=== PATIENT | male | born 1940 | race Caucasian/White ===

== ENCOUNTER 2020-12-01 09:49 | Inpatient (IN) | payer MEDICARE, OTHER ==
[~2020-12-01] VITALS: Ht 167.6 cm; Wt 45.5 kg
--- NOTE | 2020-12-01 10:07 | NUR ---
CALLED [facility], , FOR VACCINE INFO. MEDICAL RECORDS IN A MEETING, ASKING TO CALLBACK IN 20 MIN
--- NOTE | 2020-12-01 10:24 | NUR ---
ANIYA OLEARY FRM SNIF FOR ABNORMAL LABS, H&H 8.5/ .5. PT AAOX3, RR EVEN & UNLABORED. DENIES CP, SOB, DIZZINESS, N/V/D AT THIS TIME. PT SEEN & EVAL'D BY DR. VALDIVIA. PLACED ON RFID TECHNICIAN, AFIB. WILL CONT TO MONITOR.
[2020-12-01 10:37] LABS: BASOPHILS # (AUTO) 0.1 K/uL (0.0-0.2); BASOPHILS % (AUTO) 1.3 % (0.0-2.0); EOSINOPHILS % (AUTO) 4.6 % (0.0-6.0); HEMATOCRIT 28 % (39-51); HEMOGLOBIN 9.2 g/dL (13.5-17.5); LYMPHOCYTES # (AUTO) 1.1 K/uL (0.8-4.8); LYMPHOCYTES % (AUTO) 16.4 % (20.0-44.0); MEAN CORPUSCULAR HGB CONC 33 g/dl (31.0-36.0); MEAN CORPUSCULAR VOLUME 84 fL (80-96); MONOCYTES # (AUTO) 1.1 K/uL (0.1-1.30); MONOCYTES % (AUTO) 16.3 % (2.0-12.0); NEUTROPHILS # (AUTO) 4.1 K/uL (1.8-8.9); NEUTROPHILS % (AUTO) 61.4 % (43.0-81.0); PLATELET COUNT (AUTO) 412 K/uL (150-450); RED BLOOD CELL COUNT(AUTO) 3.32 MIL/uL (4.5-6.0); WHITE BLOOD COUNT (AUTO) 6.7 K/uL (4.3-11.0)
[2020-12-01 10:46] LABS: CALCIUM, SERUM 9.9 mg/dL (8.5-10.1); CREATININE 0.8 mg/dL (0.6-1.3); POTASSIUM 4.5 mmol/L (3.5-5.1)
[2020-12-01 10:52] LABS: ALBUMIN 2.6 g/dL (3.4-5.0); BILIRUBIN,DIRECT 0.2 mg/dL (0.0-0.2); BILIRUBIN,TOTAL 0.9 mg/dL (0.2-1.0); TOTAL PROTEIN, SERUM 6.5 g/dL (6.4-8.2)
[2020-12-01] MEDS ORDERED: LEVO175T7 PO (11:01)
[2020-12-01] MEDS ORDERED: LISI10TA29 PO (11:01)
[2020-12-01] MEDS ORDERED: CHOL100062 PO (11:01)
[2020-12-01] MEDS ORDERED: ATOR40TA PO (11:01)
[2020-12-01] MEDS ORDERED: CRAN3875 PO (11:01)
[2020-12-01] MEDS ORDERED: LOPE-195 PO (11:01)
[2020-12-01] MEDS ORDERED: METO25TA20 PO (11:01)
[2020-12-01] MEDS ORDERED: APIX5TAB PO (11:01)
[2020-12-01] MEDS ORDERED: MULT-447 PO (11:01)
[2020-12-01] MEDS ORDERED: DOCU-141 PO (11:01)
[2020-12-01] MEDS ORDERED: FURO-145 PO (11:01)
[2020-12-01] MEDS ORDERED: ISOS30TA86 PO (11:01)
[2020-12-01] MEDS ORDERED: NA P133E RC (11:07)
[2020-12-01] MEDS ORDERED: ACET-868 PO (11:07)
[2020-12-01] MEDS ORDERED: ACET-2605 PO (11:07)
[2020-12-01] MEDS ORDERED: BISA10SU11 RC (11:07)
--- NOTE | 2020-12-01 11:17 | NUR ---
SUBMITTED MOVE SHEET
--- NOTE | 2020-12-01 11:18 | NUR ---
CALLED PCP, DR. MURGUIA AND RAY STONE TALKED
--- NOTE | 2020-12-01 11:19 | NUR ---
PAGED EPIC TRAFFIC DIRECTOR
--- NOTE | 2020-12-01 11:19 | NUR ---
SUBMITTED MOVE SHEET
[2020-12-01] MEDS ORDERED: LOPERAMIDE HCL (2 MG CAP) 2 MG CAPSULE PO PRN (11:30)
[2020-12-01] MEDS ORDERED: BISACODYL SUPP (10 MG) 10 MG/SUPP.RECT SUPP.RECT RC PRN (11:30)
[2020-12-01] MEDS ORDERED: NA PHOS,M-B/NA PHOS,DI-BA 1 EA ENEMA RC PRN (11:30)
[2020-12-01] MEDS ORDERED: ACETAMINOPHEN 325 MG TABLET PO PRN (11:30)
[2020-12-01] MEDS ORDERED: MISCELLANEOUS MED 1 EA EA PO PRN (11:30)
--- NOTE | 2020-12-01 13:09 | NUR ---
PT STABLE, RR EVEN & UNLABORED. DENIES CP, SOB, DIZZINESS, N/V AT THIS TIME. WILL CONT TO MONITOR.
--- NOTE | 2020-12-01 13:20 | NUR ---
CALLED NURSING MYRIAM BELCHER. NO BEDS YET.
--- NOTE | 2020-12-01 13:22 | NUR ---
room [id number]
[2020-12-01 13:31] LABS: EOSINOPHILS % (MANUAL) 3 % (0-4); LYMPHOCYTES % (MANUAL) 15 % (16-48); MONOCYTES % (MANUAL) 12 % (0-11.0); NEUTROPHILS % (MANUAL) 70 (42-76)
--- NOTE | 2020-12-01 13:37 | NUR ---
report given to Clovis GELLER for rob.
[2020-12-01] MEDS: PANTOPRAZOLE 40 MG VIAL IV SCH ×2 (16:22→20:10)
[2020-12-01] MEDS: METOPROLOL TARTRATE 25 MG TABLET PO SCH (16:23)
--- NOTE | 2020-12-01 19:45 | NUR ---
PT RECEIVED SLEEPING IN BED, A/O X1, RESPONDS TO NAME. PT. ON TELEMETRY, SR. CURRENTLY ON 2L VIA NC WITH SATURATIONS ABOVE 98%, NO S/S OF RESP. DISTRESS NOTED. PER TELECOMMUNICATIONS NETWORK PLANNER MD ORDERS, NPO DIAGNOSIS PENDING GI CONSULT. (R) AC 18G SALINE LOCK, PATENT AND INTACT. SAFETY MEASURES IN PLACE: BED LOWEST POSITION, CALL LIGHT WITHIN REACH, SIDE RAILS UP X3, BED LOCKED, AND BED ALARM ON. NO ACUTE DISTRESS NOTED AT THIS TIME.
[2020-12-01 20:41] LABS: HEMOGLOBIN 9.5 g/dL (13.5-17.5)
[2020-12-01 22:00] VITALS: BP 121/61
[2020-12-01] MEDS: ATORVASTATIN 40 MG TABLET PO SCH (22:00)
[2020-12-02] VITALS: BP 104/52
[2020-12-02 04:00] VITALS: BP 113/57
[2020-12-02 04:28] LABS: HEMOGLOBIN 10.6 g/dL (13.5-17.5)
--- NOTE | 2020-12-02 06:39 | NUR ---
RN CLOSING NOTE PT CURRENTLY SLEEPING IN BED, A/O X1, RESPONDS TO NAME. PT. ON TELEMETRY, SR. CURRENTLY ON 2L VIA NC WITH SATURATIONS ABOVE 98%, NO S/S OF RESP. DISTRESS NOTED. PER PULLMAN CAR REPAIRER MD ORDERS, NPO DIAGNOSIS PENDING GI CONSULT. (R) AC 18G SALINE LOCK, PATENT AND INTACT. PT. DENIES ANY PAIN. KEPT CLEAN AND DRY THROUGHOUT SHIFT WITH PROPER SKIN PROTECTIVE MEASURES. MD ORDERS CARRIED OUT AND TOLERATED WELL. SAFETY MEASURES IN PLACE: BED LOWEST POSITION, CALL LIGHT WITHIN REACH, SIDE RAILS UP X3, BED LOCKED, AND BED ALARM ON. NO ACUTE DISTRESS NOTED AT THIS TIME. WILL ENDORSE CONTINUITY OF CARE TO MORNING SHIFT RN.
--- NOTE | 2020-12-02 07:20 | NUR ---
RN NOTE PATIENT OBSERVED IN BED, AWAKE RESPONSIVE TO TOUCH, ALERT AND ORIENTED X1, BREATHING EVEN AND UNLABORED, ON TELE MONITOR SR OF 80, PATIENT ON NPO FOR GI CONSULT WILL CLARIFY WITH DR. HOLLINGSWORTH, RIGHT AC IV PATENT FLUSHING WELL. WILL CONTINUE TO MONITOR, BED WHEEL LOCK, CALL LIGHT WITHIN REACH, SAFETY MEASURES OBSERVED, WILL CONTINUE TO MONITOR. Addendum: 12/02/20 at 1059 by MARGARITO SPRAGUE RN RN NOTE PATIENT OBSERVED IN BED, AWAKE RESPONSIVE TO TOUCH, ALERT AND ORIENTED X1, PATIENT ON O2 VIA NC @ 2LPM O2 SAT OF 97 %, BREATHING EVEN AND UNLABORED, ON TELE MONITOR SR OF 80, PATIENT ON NPO FOR GI CONSULT WILL CLARIFY WITH DR. HOLLINGSWORTH, RIGHT AC IV PATENT FLUSHING WELL. WILL CONTINUE TO MONITOR, BED WHEEL LOCK, CALL LIGHT WITHIN REACH, SAFETY MEASURES OBSERVED, WILL CONTINUE TO MONITOR. Addendum: 12/03/20 at 0745 by MARGARITO SPRAGUE RN RN NOTE PATIENT OBSERVED IN BED, AWAKE RESPONSIVE TO TOUCH, ALERT AND ORIENTED X1, BREATHING EVEN AND UNLABORED, ON TELE MONITOR CONTROLLED A-FIB OF 80, PATIENT ON NPO FOR GI CONSULT WILL CLARIFY WITH DR. HOLLINGSWORTH, RIGHT AC IV PATENT FLUSHING WELL. WILL CONTINUE TO MONITOR, BED WHEEL LOCK, CALL LIGHT WITHIN REACH, SAFETY MEASURES OBSERVED, WILL CONTINUE TO MONITOR.
[2020-12-02] MEDS: LEVOTHYROXINE SODIUM 175 MCG TABLET PO SCH (07:30)
[2020-12-02 08:00] VITALS: BP 98/55
[2020-12-02] MEDS: PANTOPRAZOLE 40 MG VIAL IV SCH ×2 (08:16→16:45)
[2020-12-02] MEDS: DOCUSATE SODIUM 100 MG CAPSULE PO SCH (09:00)
[2020-12-02] MEDS: METOPROLOL TARTRATE 25 MG TABLET PO SCH ×2 (09:00→16:43)
[2020-12-02] MEDS: FUROSEMIDE 20 MG TABLET PO SCH (09:00)
[2020-12-02] MEDS: CHOLECALCIFEROL 1,000 UNIT TABLET (VIT D3) PO SCH (09:00)
[2020-12-02] MEDS ORDERED: Medication Not On Formulary EA (Cran/Vitc/Mannose/Inulin/Brom (Uti-Stat Liquid) 3,875 MG PO SCH (09:00)
[2020-12-02] MEDS: ISOSORBIDE MONONITRATE (30MG) 30 MG TAB.SR.24H PO SCH (09:00)
[2020-12-02] MEDS: MULTIVIT W/MINERALS 1 TAB TABLET PO SCH (09:00)
[2020-12-02] MEDS: LISINOPRIL (10MG) 10 MG TABLET PO SCH (09:00)
--- NOTE | 2020-12-02 09:50 | NUR ---
RN NOTE HOLD PO MEDICATION ORDERED. PATIENT FOR SWALLOW EVALUATION
--- NOTE | 2020-12-02 09:54 | NUR ---
RN NOTE PATIENT SEEN BY DR. PONCE, MADE AWARE OF PATIENT CURRENT CONDITION, WILL CONTINUE TO MONITOR PATIENT.
--- NOTE | 2020-12-02 11:33 | NUR ---
RN NOTE PATIENT ON NPO PER DR. PONCE SCHEDULED FOR EGD DR. PONCE TALKED WITH DR. BENDER, CONSENT FOR EGD DONE, ORDERS NOTED AND CARRIED OUT ORDERED.
--- NOTE | 2020-12-02 11:44 | NUR ---
RN NOTE RP NOTIFIED FOR CONSENT FOR EGD AND BLOOD TRANSFUSION, REZA AGUAYO WILL SIGN THE CONSENT PERSONALLY ANDSHES ON HER WAY AROUND 1235.
[2020-12-02 12:00] VITALS: BP 32/51
[2020-12-02 12:06] LABS: HEMOGLOBIN 10.4 g/dL (13.5-17.5)
--- NOTE | 2020-12-02 13:41 | NUR ---
RN NOTE EGD, BLOOD TRANSFUSION CONSENT OBTAINED FROM RESPONSIBLE CONSTITUTION PARTY.
[2020-12-02] MEDS ORDERED: ANESTHESIA TRAY IN PYXIS 1 EA TRAY MC ONE (15:01)
[2020-12-02 16:00] VITALS: BP 95/57
--- NOTE | 2020-12-02 18:06 | NUR ---
RN NOTE PATIENT OBSERVED IN BED, AWAKE RESPONSIVE TO TOUCH, ALERT AND ORIENTED X1, PATIENT ON O2 VIA NC @ 2LPM O2 SAT OF 978 %, BREATHING EVEN AND UNLABORED, ON TELE MONITOR SR OF 74, PATIENT ON NPO FOR EGD WITH DR. DELUCA ORDERED BY , RIGHT AC IV PATENT FLUSHING WELL. WILL CONTINUE TO MONITOR, BED WHEEL LOCK, CALL LIGHT WITHIN REACH, SAFETY MEASURES OBSERVED, WILL CONTINUE TO MONITOR. WILL ENDORSE TO NEXT SHIFT Addendum: 12/03/20 at 0744 by MARGARITO SPRAGUE RN N NOTE PATIENT OBSERVED IN BED, AWAKE RESPONSIVE TO TOUCH, ALERT AND ORIENTED X1, PATIENT ON O2 VIA NC @ 2LPM O2 SAT OF 98 %, BREATHING EVEN AND UNLABORED, ON TELE MONITOR CONTROLED AFIB OF 74, PATIENT ON NPO FOR EGD WITH DR. DELUCA ORDERED BY , RIGHT AC IV PATENT FLUSHING WELL. WILL CONTINUE TO MONITOR, BED WHEEL LOCK, CALL LIGHT WITHIN REACH, SAFETY MEASURES OBSERVED, WILL CONTINUE TO MONITOR. WILL ENDORSE TO NEXT SHIFT
--- NOTE | 2020-12-02 18:10 | NUR ---
RN NOTE PATIENT TRANSPORTED TO GI FOR EGD,PATIENT WITH O2 VIA NC @ 2LPM O2 SAT OF 98%, NOT IN DISTRESS BREATHING EVENA ND UNLABORED, VTS WNL.
--- NOTE | 2020-12-02 19:00 | NUR ---
RN NOTE REPORT RECEIVED FROM MARGARITO GELLER. PATIENT AT EGD PROCEDURE.
--- NOTE | 2020-12-02 19:30 | NUR ---
RN NOTE PATIENT BACK TO UNIT FROM GI/OR S/P EGD VIA MEDICAL BED ACCOMPANIED BY CARLYN GELLER AND ANOTHER OR PERSONNEL, TRANSFERRED BACK TO BED VIA 2 PERSON ASSIST, AO X 1-2, NON VERBAL BUT COOPERATIVE, IN NO S/SX OF ACUTE DISTRESS AT THIS TIME. BREATHING EVEN AND UNLABORED, SATURATION AT 100% ON 2 LPM VIA NC, SR ON THE MONITOR, HR IS 89. NOTED IV SITE AT R AC 18GG, APPEARS LEAKING, BUT PATENT WHEN FLUSHED, NO S/S OF INFECTION OR INFILTRATION. SAFETY MEASURES IMPLEMENTED. PATIENT BED ALARM IS ON. HEAD OF BED ELEVATED. BED IS LOCKED, IN LOWEST POSITION AND SIDE RAILS UP. CALL LIGHT WITHIN REACH OF THE PATIENT. WILL CONTINUE TO MONITOR AND REASSESS FOR ANY CHANGES.
[2020-12-02 20:00] VITALS: BP 101/97
[2020-12-02 20:29] LABS: HEMOGLOBIN 9.5 g/dL (13.5-17.5)
[2020-12-02] MEDS: ATORVASTATIN 40 MG TABLET PO SCH (21:23)
[2020-12-03] VITALS (7 sets, daily range): BP systolic 91–111; BP diastolic 46–61
[2020-12-03 04:14] LABS: HEMOGLOBIN 9.9 g/dL (13.5-17.5)
--- NOTE | 2020-12-03 07:20 | NUR ---
RN NOTE PATIENT OBSERVED IN BED, AWAKE RESPONSIVE TO TOUCH, ALERT AND ORIENTED X1, PATIENT ON O2 VIA NC @ 2LPM O2 SAT OF 97 %, BREATHING EVEN AND UNLABORED, ON TELE MONITOR CONTROLLED A-FIB OF 74, NO COMPLAINS OF CHEST PAIN NOTED, RIGHT AC IV PATENT FLUSHING WELL. WILL CONTINUE TO MONITOR, BED WHEEL LOCK, CALL LIGHT WITHIN REACH, SAFETY MEASURES OBSERVED, WILL CONTINUE TO MONITOR.
[2020-12-03] MEDS: MULTIVIT W/MINERALS 1 TAB TABLET PO SCH (08:41)
[2020-12-03] MEDS: LEVOTHYROXINE SODIUM 175 MCG TABLET PO SCH (08:41)
[2020-12-03] MEDS: DOCUSATE SODIUM 100 MG CAPSULE PO SCH (08:41)
[2020-12-03] MEDS: CHOLECALCIFEROL 1,000 UNIT TABLET (VIT D3) PO SCH (08:41)
[2020-12-03] MEDS: PANTOPRAZOLE 40 MG VIAL IV SCH ×2 (08:41→17:21)
[2020-12-03] MEDS: FUROSEMIDE 20 MG TABLET PO SCH (08:41)
[2020-12-03] MEDS: METOPROLOL TARTRATE 25 MG TABLET PO SCH ×2 (09:00→17:21)
[2020-12-03] MEDS: ISOSORBIDE MONONITRATE (30MG) 30 MG TAB.SR.24H PO SCH (09:00)
[2020-12-03] MEDS: LISINOPRIL (10MG) 10 MG TABLET PO SCH (09:00)
[2020-12-03] MEDS: ENSURE ENLIVE 237 ML LIQUID (VANILLA) PO SCH ×2 (10:12→17:26)
--- NOTE | 2020-12-03 10:46 | NUR ---
RN NOTE SEEN BY DR. HOLLINGSWORTH, PATIENT TO BE DISCHARGE BACK TO SNF TODAY.
--- NOTE | 2020-12-03 19:11 | NUR ---
RN NOTE PATIENT OBSERVED IN BED, AWAKE RESPONSIVE TO TOUCH, ALERT AND ORIENTED X1, PATIENT ON O2 VIA NC @ 2LPM O2 SAT OF 97 %, BREATHING EVEN AND UNLABORED, ON TELE MONITOR CONTROLLED A-FIB OF 74, NO COMPLAINS OF CHEST PAIN NOTED, RIGHT AC IV PATENT FLUSHING WELL. PATIENT FOR DISCHARGE ON AM, LABS ON AM, WILL CONTINUE TO MONITOR, BED WHEEL LOCK, CALL LIGHT WITHIN REACH, SAFETY MEASURES OBSERVED, WILL CONTINUE TO MONITOR.
[2020-12-03 20:29] LABS: HEMOGLOBIN 9.6 g/dL (13.5-17.5)
[2020-12-03] MEDS: ATORVASTATIN 40 MG TABLET PO SCH (22:19)
[2020-12-04] VITALS: BP 90/45
[2020-12-04 00:18] VITALS: BP 90/45
[2020-12-04 04:00] VITALS: BP 94/43
[2020-12-04 07:06] LABS: BASOPHILS # (AUTO) 0.1 K/uL (0.0-0.2); BASOPHILS % (AUTO) 1.4 % (0.0-2.0); EOSINOPHILS % (AUTO) 3.8 % (0.0-6.0); HEMATOCRIT 29 % (39-51); HEMOGLOBIN 9.6 g/dL (13.5-17.5); LYMPHOCYTES # (AUTO) 0.9 K/uL (0.8-4.8); LYMPHOCYTES % (AUTO) 14.3 % (20.0-44.0); MEAN CORPUSCULAR HGB CONC 33 g/dl (31.0-36.0); MEAN CORPUSCULAR VOLUME 85 fL (80-96); MONOCYTES # (AUTO) 1.3 K/uL (0.1-1.30); MONOCYTES % (AUTO) 21.5 % (2.0-12.0); NEUTROPHILS # (AUTO) 3.5 K/uL (1.8-8.9); PLATELET COUNT (AUTO) 347 K/uL (150-450)
[2020-12-04 07:11] LABS: CALCIUM, SERUM 9.4 mg/dL (8.5-10.1); CREATININE 0.8 mg/dL (0.6-1.3); POTASSIUM 4.1 mmol/L (3.5-5.1)
--- NOTE | 2020-12-04 07:30 | NUR ---
RN NOTE PATIENT FOR DISCHARGE GAVE REPRT TO AGUSTIN THOMPSON RN UPDATED REGARDING PATIENT CURRENT CONDITION AND DISCHARGE ORDERS, PATIENT OBSERVED IN BED, AWAKE RESPONSIVE TO TOUCH, ALERT AND ORIENTED X1, PATIENT ON O2 VIA NC @ 2LPM O2 SAT OF 99 %, BREATHING EVEN AND UNLABORED, ON TELE MONITOR CONTROLLED A-FIB OF 74, NO COMPLAINS OF CHEST PAIN NOTED, RIGHT AC IV PATENT FLUSHING WELL. WILL CONTINUE TO MONITOR, BED WHEEL LOCK, CALL LIGHT WITHIN REACH, SAFETY MEASURES OBSERVED, WILL CONTINUE TO MONITOR.
[2020-12-04] MEDS: ENSURE ENLIVE 237 ML LIQUID (VANILLA) PO SCH (08:12)
--- NOTE | 2020-12-04 08:25 | NUR ---
RN NOTE PATIENT PADDER CUSHION BY TRANSPORT FOR DISCHARGE TO BE ADMITTED TO [facility], PATIENT VTS WNL GAVE REPORT REGARDING PATIENT CURRENT STATUS.
[2020-12-04 10:07] LABS: BAND % (MANUAL) 1 % (0.0-5.0); EOSINOPHILS % (MANUAL) 5 % (0-4); LYMPHOCYTES % (MANUAL) 15 % (16-48); MONOCYTES % (MANUAL) 22 % (0-11.0); NEUTROPHILS % (MANUAL) 57 (42-76)
== END 2020-12-04 08:45 | DRG 811 ==
LOC: ER 09:59 → MEDSG1 13:54 → TELE1 21:02
PROVIDERS: ADMIT Internal Medicine; ATTEND Internal Medicine
PROC: 0DB68ZX Excision of Stomach, Via Natural or Artificial Opening Endoscopic, Diagnostic (ICD-10-PCS; principal; 2020-12-02)
DX: D64.9 Anemia, unspecified (principal); E43 Unspecified severe protein-calorie malnutrition; R64 Cachexia; Z68.1 Body mass index [BMI] 19.9 or less, adult; E78.5 Hyperlipidemia, unspecified; E03.9 Hypothyroidism, unspecified; I11.0 Hypertensive heart disease with heart failure; I48.91 Unspecified atrial fibrillation; I50.9 Heart failure, unspecified; F32.9 Major depressive disorder, single episode, unspecified; K29.70 Gastritis, unspecified, without bleeding; K29.80 Duodenitis without bleeding; K44.9 Diaphragmatic hernia without obstruction or gangrene; Z66 Do not resuscitate; Z51.5 Encounter for palliative care; Z79.01 Long term (current) use of anticoagulants; F02.80 Dementia in other diseases classified elsewhere, unspecified severity, without behavioral disturbance, psychotic disturbance, mood disturbance, and anxiety; G20 Parkinson's disease; Z96.641 Presence of right artificial hip joint; M41.9 Scoliosis, unspecified; Z86.16 Personal history of COVID-19; Z91.041 Radiographic dye allergy status; I35.1 Nonrheumatic aortic (valve) insufficiency; Z79.899 Other long term (current) drug therapy; Z20.822 Contact with and (suspected) exposure to COVID-19; C61 Malignant neoplasm of prostate; R62.7 Adult failure to thrive; Z87.09 Personal history of other diseases of the respiratory system
CPT/HCPCS: 36415; 80048-TC; 80076-TC; 85025-TC; 85027-TC; 85730-TC; 86850-TC; 87081-TC; 88305-TC; 88313-TC; 88342; 92526; 92611-TC; C9113; G0378; J2704; U0003

== ENCOUNTER 2021-12-09 21:03 | Inpatient (IN) | payer MEDICARE, OTHER ==
[~2021-12-09] VITALS: Ht 160 cm; Wt 39.0 kg
[~2021-12-09 21:03] MED LIST: ACET-2605 PO; ACET-868 PO; APIX5TAB PO; ATOR40TA PO; BISA10SU11 RC; CHOL100062 PO; CRAN3875 PO; DOCU-141 PO; FURO-145 PO; ISOS30TA86 PO; LEVO175T7 PO; LISI10TA29 PO; LOPE-195 PO; METO25TA20 PO; MULT-447 PO; NA P133E RC
--- NOTE | 2021-12-09 22:20 | NUR ---
TO ER BED 2. ANIYAPA FROM SNF C/O FEVER AND TESTED COVID + . PT IS NON VERBAL, BUT FOLLOWS SIMPLE COMMANDS. NON AMBULATORY, CONTRACTED BILATERAL LEGS. BREATHING IS EVEN AND NONLABORED. CONNECTED TO MONITOR. AWAITING MD ALVARADO
[2021-12-09] MEDS ORDERED: IV NS 0.9% 500 ML BAG IV ONE (22:30)
--- NOTE | 2021-12-09 22:40 | NUR ---
IV LINE ESTABLISHED, LHAND 20G. BLOOD COLLECTED AND SENT TO LAB
--- NOTE | 2021-12-09 22:40 | NUR ---
COVID SWAB COLLECTED AND SENT TO LAB
--- NOTE | 2021-12-09 22:47 | NUR ---
XRAY AT BEDSIDE
[2021-12-09 22:50] LABS: BASOPHILS # (AUTO) 0.1 K/uL (0.0-0.2); BASOPHILS % (AUTO) 0.8 % (0.0-2.0); EOSINOPHILS % (AUTO) 2.2 % (0.0-6.0); HEMATOCRIT 36 % (39-51); HEMOGLOBIN 11.5 g/dL (13.5-17.5); LYMPHOCYTES % (AUTO) 13.4 % (20.0-44.0); MEAN CORPUSCULAR HGB CONC 32 g/dl (31.0-36.0); MEAN CORPUSCULAR VOLUME 78 fL (80-96); MONOCYTES # (AUTO) 1.8 K/uL (0.1-1.30); MONOCYTES % (AUTO) 23.3 % (2.0-12.0); NEUTROPHILS # (AUTO) 4.6 K/uL (1.8-8.9); NEUTROPHILS % (AUTO) 60.3 % (43.0-81.0); PLATELET COUNT (AUTO) 317 K/uL (150-450); RED BLOOD CELL COUNT(AUTO) 4.59 MIL/uL (4.5-6.0); WHITE BLOOD COUNT (AUTO) 7.6 K/uL (4.3-11.0)
[2021-12-09 23:04] LABS: CALCIUM, SERUM 9.1 mg/dL (8.5-10.1); CARBON DIOXIDE 25 mmol/L (21-32); CHLORIDE 101 mmol/L (98-107); CREATININE 0.6 mg/dL (0.6-1.3); GLUCOSE 88 mg/dL (74-106); POTASSIUM 4.1 mmol/L (3.5-5.1); SODIUM SERUM 133 mmol/L (136-145); UREA NITROGEN, BLOOD 16 mg/dL (7-18)
[2021-12-09 23:17] LABS: ALANINE AMINOTRANSFERASE 14 U/L (12-78); ALBUMIN 2.7 g/dL (3.4-5.0); ALKALINE PHOSPHATASE 80 U/L (46-116); ASPARTATE AMINOTRANSFERASE 26 U/L (15-37); BILIRUBIN,DIRECT 0.2 mg/dL (0.0-0.2)
[2021-12-09] MEDS ORDERED: ASPIRIN 325 MG TABLET PO ONE (23:30)
[2021-12-09] MEDS ORDERED: ALBUTEROL SULFATE 8 GM HFA.AER.AD IH PRN (23:30)
[2021-12-09] MEDS ORDERED: NA PHOS,M-B/NA PHOS,DI-BA 1 EA ENEMA RC PRN (23:30)
[2021-12-09] MEDS ORDERED: ACETAMINOPHEN 325 MG TABLET PO PRN ×2 (23:30)
[2021-12-09] MEDS ORDERED: ACETAMINOPHEN ES 500 MG TABLET PO PRN (23:30)
[2021-12-09] MEDS ORDERED: BISACODYL SUPP (10 MG) 10 MG/SUPP.RECT SUPP.RECT RC PRN (23:30)
--- NOTE | 2021-12-09 23:31 | NUR ---
URINE SAMPLE COLLECTED AND SENT LAB
[2021-12-09] MEDS ORDERED: ASPIRIN 325 MG TABLET ONE (23:54)
[2021-12-10 00:06] LABS: BILIRUBIN,URINE NEGATIVE (NEGATIVE); COLOR,URINE YELLOW (YELLOW); LEUKOCYTE ESTERASE ,URINE MODERATE (NEGATIVE); NITRITE, URINE POSITIVE (NEGATIVE); PROTEIN,URINE NEGATIVE (NEGATIVE); UGLUCOSE NEGATIVE (NEGATIVE); UROBILINOGEN,URINE 0.2 EU/dL (0.2)
[2021-12-10] MEDS ORDERED: CEFTRIAXONE 1GM BAG (ER ONLY) 1 GM/50 ML PIGGYBACK IV ONE (00:30)
[2021-12-10] MEDS ORDERED: CEFTRIAXONE 1GM BAG (ER ONLY) 50 ML IV ONE (00:32)
[2021-12-10 02:58] LABS: BASOPHILS # (AUTO) 0.1 K/uL (0.0-0.2); BASOPHILS % (AUTO) 1.3 % (0.0-2.0); EOSINOPHILS % (AUTO) 2.2 % (0.0-6.0); HEMATOCRIT 34 % (39-51); HEMOGLOBIN 10.9 g/dL (13.5-17.5); LYMPHOCYTES % (AUTO) 14.6 % (20.0-44.0); MEAN CORPUSCULAR HGB CONC 32 g/dl (31.0-36.0); MEAN CORPUSCULAR VOLUME 79 fL (80-96); MONOCYTES # (AUTO) 1.4 K/uL (0.1-1.30); MONOCYTES % (AUTO) 20.7 % (2.0-12.0); NEUTROPHILS # (AUTO) 4.1 K/uL (1.8-8.9); NEUTROPHILS % (AUTO) 61.2 % (43.0-81.0); PLATELET COUNT (AUTO) 306 K/uL (150-450); WHITE BLOOD COUNT (AUTO) 6.7 K/uL (4.3-11.0)
--- NOTE | 2021-12-10 03:03 | NUR ---
BED 104
[2021-12-10 03:14] LABS: ALANINE AMINOTRANSFERASE 14 U/L (12-78); ALBUMIN 2.5 g/dL (3.4-5.0); ALKALINE PHOSPHATASE 75 U/L (46-116); ASPARTATE AMINOTRANSFERASE 21 U/L (15-37); BILIRUBIN,TOTAL 0.8 mg/dL (0.2-1.0); CALCIUM, SERUM 8.7 mg/dL (8.5-10.1); CARBON DIOXIDE 26 mmol/L (21-32); CHLORIDE 103 mmol/L (98-107); CREATININE 0.6 mg/dL (0.6-1.3); GLUCOSE 86 mg/dL (74-106); SODIUM SERUM 134 mmol/L (136-145); TOTAL PROTEIN, SERUM 6.4 g/dL (6.4-8.2); UREA NITROGEN, BLOOD 15 mg/dL (7-18)
--- NOTE | 2021-12-10 03:23 | NUR ---
REPORT GIVEN TO TERRI GELLER FOR MARIMAR
[2021-12-10 04:00] VITALS: BP 101/42
--- NOTE | 2021-12-10 04:00 | NUR ---
RN NOTES ADMITTED A 81 Y/O MALE PATIENT FROM ER VIA GURNEY. A/O X2 NON VERBAL BUT FOLLOWS COMMAND. NO SOB NO DISTRESS NOTED. WITH IV ACCESS AT L HAND #20 PATENT FLUSHES WELL. SAFELY TRANSFER TO BED SAFELY. VITAL SIGNS TAKEN AND RECORDED AFEBRILE. COMPLETE BODY ASSESSMENT DONE. ALL SAFETY MEASURES IN PLACE AT ALL TIMES. HOB ELEVATED. CALL LIGHT WITHIN REACH. ON ISOLATION DUE TO COVID 19. ALL ISOLATION PRECAUTION IN RENDERED AT ALL TIMES
[2021-12-10] MEDS ORDERED: FUROSEMIDE 20 MG/2 ML VIAL IV ONE (05:00)
[2021-12-10 06:39] LABS: BACTERIA,URINE Many /HPF (None Seen); SQUAMOUS EPITHELIAL CELL,UR Few /HPF (None Seen)
--- NOTE | 2021-12-10 06:45 | NUR ---
RN NOTES PATIENT IN BED RESPONSIVE TO VERBAL STIMULI. WITH L HAND # 20 PATENT FLUSHES. ALL SAFETY MEASURES IN PLACE AT ALL TIMES. PATIENT REMAINS STABLE THE WHOLE SHIFT NO SOB NO DISTRESS AT THIS TIME. ALL SAFETY MEASURES IN PLACE AT ALL TIMES. HOB ELEVATED. CALL LIGHT WITHIN REACH. WILL ENDORSED TO MORNING SHIFT FOR MARIMAR
[2021-12-10 06:56] LABS: BAND % (MANUAL) 1 % (0.0-5.0); EOSINOPHILS % (MANUAL) 3 % (0-4); LYMPHOCYTES % (MANUAL) 12 % (16-48); METAMYELOCYTES % 1 % (0-0); MONOCYTES % (MANUAL) 18 % (0-11.0); NEUTROPHILS % (MANUAL) 65 (42-76)
--- NOTE | 2021-12-10 07:32 | NUR ---
RN OPENING NOTES RECEIVED PATIENT REPORT FROM NIGHTSHIFT RN. PATIENT IS RESTING IN BED ALERT AND ORIENTED TIMES 1, NON-VERBAL BUT FOLLOWS INSTRUCTIONS. ATTACHED TO EXTERNAL BODY MASKER READING A-FIB CONTROLLED, WITH BUNDLE BRANCH BLOCK. PATIENT IS BED BOUND, SKIN INTACT. LOWER EXTREMITIES CONTRACTED. IV ACCESS ON LEFT HAND 20 GAUGE, FLUSHING EASILY WITH NO RESISTANCE. SAFETY MEASURES IMPLEMENTED, BED IN LOWEST POSITION, SIDE RAILS UP, CALL LIGHT WITHIN REACH, BED ALARM ON. WILL CONTINUE PLAN OF CARE AND ANTICIPATE NEEDS.
[2021-12-10] MEDS: LEVOTHYROXINE SODIUM 175 MCG TABLET PO SCH (07:52)
[2021-12-10 08:00] VITALS: BP 109/55
[2021-12-10] MEDS ORDERED: Medication Not On Formulary EA (Cran/Vitc/Mannose/Inulin/Brom (Uti-Stat Liquid) 3,875 MG PO SCH (09:00)
[2021-12-10] MEDS: APIXABAN 5 MG TABLET PO SCH ×2 (09:00→21:36)
[2021-12-10] MEDS: METOPROLOL TARTRATE 25 MG TABLET PO SCH ×2 (09:00→17:12)
[2021-12-10] MEDS: LISINOPRIL (10MG) 10 MG TABLET PO SCH (09:00)
[2021-12-10] MEDS: CHOLECALCIFEROL 1,000 UNIT TABLET (VIT D3) PO SCH (11:23)
[2021-12-10] MEDS: MULTIVIT W/MINERALS 1 TAB TABLET PO SCH (11:24)
[2021-12-10] MEDS: DOCUSATE SODIUM 100 MG CAPSULE PO SCH (11:24)
[2021-12-10] MEDS: ISOSORBIDE MONONITRATE (30MG) 30 MG TAB.SR.24H PO SCH (11:26)
[2021-12-10 12:00] VITALS: BP 104/50
[2021-12-10 16:00] VITALS: BP 126/53
--- NOTE | 2021-12-10 19:10 | NUR ---
RN NOTES RECEIVED REPORT FROM MORNING RN. PATIENT IN BED A/O X1 NON VERBAL BUT FOLLOWS COMMAND.ON ROOM AIR SATING 95% NO SOB NO DISTRESS NOTED AT THIS TIME. WITH IV ACCESS ON L HAND # 20 PATENT FLUSHES WELL. ALL SAFETY MEASURES IN PLACE AT ALL TIMES. HOB ELEVATED. CALL LIGHT WITHIN REACH. ALL ISOLATION PRECAUTION RENDERED AT ALL TIMES. WILL CLOSELY MONITOR THE PATIENT
--- NOTE | 2021-12-10 19:29 | NUR ---
RN CLOSING NOTES PATIENT IS RESTING IN BED ALERT AND ORIENTED TIMES 1, NON-VERBAL BUT FOLLOWS INSTRUCTIONS. ATTACHED TO EXTERNAL VAMP STRAP IRONER READING A-FIB CONTROLLED, WITH BUNDLE BRANCH BLOCK. PATIENT IS BED BOUND, SKIN INTACT. LOWER EXTREMITIES CONTRACTED. IV ACCESS ON LEFT HAND 20 GAUGE, FLUSHING EASILY WITH NO RESISTANCE. ALL DUE MEDS GIVEN. SAFETY MEASURES IMPLEMENTED, BED IN LOWEST POSITION, SIDE RAILS UP, CALL LIGHT WITHIN REACH, BED ALARM ON. WILL ENDORSE TO NIGHTSHIFT RN FOR MARIMAR.
[2021-12-10 20:00] VITALS: BP 98/79
[2021-12-10] MEDS: ATORVASTATIN 40 MG TABLET PO SCH (21:35)
[2021-12-11] VITALS: BP_SYST 91; BP_SYST 95; BP_DIAS 50
[2021-12-11] MEDS: CEFTRIAXONE 1 G in IV D5W 50 ML IV SCH (00:41)
[2021-12-11 04:00] VITALS: BP 96/46
[2021-12-11] MEDS: LEVOTHYROXINE SODIUM 175 MCG TABLET PO SCH (07:46)
[2021-12-11 08:00] VITALS: BP 94/43
[2021-12-11] MEDS: DOCUSATE SODIUM 100 MG CAPSULE PO SCH (08:45)
[2021-12-11] MEDS: CHOLECALCIFEROL 1,000 UNIT TABLET (VIT D3) PO SCH (08:45)
[2021-12-11] MEDS: MULTIVIT W/MINERALS 1 TAB TABLET PO SCH (08:45)
[2021-12-11] MEDS: APIXABAN 5 MG TABLET PO SCH ×2 (08:50→21:46)
[2021-12-11] MEDS: ISOSORBIDE MONONITRATE (30MG) 30 MG TAB.SR.24H PO SCH (08:51)
[2021-12-11] MEDS: METOPROLOL TARTRATE 25 MG TABLET PO SCH ×2 (08:51→17:00)
[2021-12-11] MEDS: LISINOPRIL (10MG) 10 MG TABLET PO SCH (08:52)
[2021-12-11] MEDS: FERROUS SULFATE (325 MG) 325 MG/TAB TABLET PO SCH ×2 (08:57→17:14)
[2021-12-11 12:00] VITALS: BP 91/39
[2021-12-11] MEDS: ENSURE ENLIVE 237 ML LIQUID (VANILLA) PO SCH ×2 (13:08→17:15)
[2021-12-11 16:00] VITALS: BP 104/46
[2021-12-11 20:00] VITALS: BP 98/50
[2021-12-11] MEDS: ATORVASTATIN 40 MG TABLET PO SCH (21:45)
[2021-12-12] VITALS: BP 98/50
[2021-12-12] MEDS: CEFTRIAXONE 1 G in IV D5W 50 ML IV SCH (01:07)
[2021-12-12 04:00] VITALS: BP 95/50
[2021-12-12] MEDS: LEVOTHYROXINE SODIUM 175 MCG TABLET PO SCH (07:20)
--- NOTE | 2021-12-12 07:30 | NUR ---
SUPERVISOR DIALS OPENING NOTES: RECEIVED PATIENT IN BED ASLEEP, EASILY AROUSED WITH STIMULI, NON-VERBAL FOLLOWS SIMPLE INSTRUCTIONS. NO RESPIRATORY DISTRESS NOTED ON ROOM AIR AND SATURATING WELL. ON EXTERNAL RELATIONS LIAISON READING A-FIB CONTROLLED. PATIENT IS BED BOUND, LOWER EXTREMETY CONTRACTED. SKIN INTACT. IV ACCESS ON LEFT HAND 20 GAUGE,PATENT AND INTACT AND SALINE LOCKED. SAFETY MEASURES MAINTAINED, BED IN LOWEST AND LOCKED POSITION, SIDE RAILS UP, CALL LIGHT WITHIN REACH, BED ALARM ON. KEPT RESTED AND COMFORTABLE. WILL MONITOR ACCORDINGLY.
--- NOTE | 2021-12-12 07:30 | NUR ---
B2B MANAGED SERVICE SALES EXEC OPENING NOTES: RECEIVED PATIENT IN BED ASLEEP, EASILY AROUSED WITH STIMULI, NON-VERBAL FOLLOWS SIMPLE INSTRUCTIONS. NO RESPIRATORY DISTRESS NOTED ON ROOM AIR AND SATURATING WELL. ON EXTERNAL ROLL CHANGER READING A-FIB CONTROLLED. PATIENT IS BED BOUND, LOWER EXTREMETY CONTRACTED. SKIN INTACT. IV ACCESS ON LEFT HAND 20 GAUGE,PATENT AND INTACT AND SALINE LOCKED. SAFETY MEASURES MAINTAINED, BED IN LOWEST AND LOCKED POSITION, SIDE RAILS UP, CALL LIGHT WITHIN REACH, BED ALARM ON. KEPT RESTED AND COMFORTABLE. WILL MONITOR ACCORDINGLY. Addendum: 12/12/21 at 0748 by ABDI BOX RN INCORRECT PATIENT. PLEASE DISREGARD.
--- NOTE | 2021-12-12 07:46 | NUR ---
RN CLOSING NOTES REPORT GIVEN TO DAY NURSE FOR MARIMAR. PT STABLE. NO S/SX OF DISTRESS NOTED. Addendum: 12/12/21 at 0748 by ABDI BOX RN INCORRECT PATIENT. PLEASE DISREGARD.
[2021-12-12 08:00] VITALS: BP 105/70
[2021-12-12] MEDS: DOCUSATE SODIUM 100 MG CAPSULE PO SCH (08:48)
[2021-12-12] MEDS: FERROUS SULFATE (325 MG) 325 MG/TAB TABLET PO SCH ×2 (08:48→16:23)
[2021-12-12] MEDS: ENSURE ENLIVE 237 ML LIQUID (VANILLA) PO SCH ×3 (08:48→17:19)
[2021-12-12] MEDS: CHOLECALCIFEROL 1,000 UNIT TABLET (VIT D3) PO SCH (08:49)
[2021-12-12] MEDS: METOPROLOL TARTRATE 25 MG TABLET PO SCH ×2 (08:49→17:00)
[2021-12-12] MEDS: MULTIVIT W/MINERALS 1 TAB TABLET PO SCH (08:49)
[2021-12-12] MEDS: LISINOPRIL (10MG) 10 MG TABLET PO SCH (08:49)
[2021-12-12] MEDS: APIXABAN 5 MG TABLET PO SCH ×2 (08:50→21:40)
[2021-12-12] MEDS: ISOSORBIDE MONONITRATE (30MG) 30 MG TAB.SR.24H PO SCH (09:00)
--- NOTE | 2021-12-12 09:33 | NUR ---
DUYEN NOTES: ISOSORBIDE NOT GIVEN, HAD 2 OUT OF 3 BP MEEDS Addendum: 12/12/21 at 3324 theo ALONSO RN ERROR
--- NOTE | 2021-12-12 09:34 | NUR ---
RN NOTES: ISOSORBIDE (BP MEDS)NOT GIVEN, HAD 2 BP MEDS GIVEN OUT OF 3 MEDS. CURRENT BP 105/70, PULSE 96 BPM.
[2021-12-12 12:00] VITALS: BP 85/48
[2021-12-12 16:00] VITALS: BP 99/55
--- NOTE | 2021-12-12 18:56 | NUR ---
BUSINESS OBJECTS REPORT DEVELOPER CLOSING NOTES: PATIENT AWAKE, ABLE TO VERBALIZE FEW WORDS ABLE FOLLOWS SIMPLE INSTRUCTIONS. NO RESPIRATORY DISTRESS NOTED ON ROOM AIR AND SATURATING WELL. ON EXTERNAL AGRICULTURAL EQUIPMENT DESIGN ENGINEER READING A-FIB CONTROLLED. PATIENT IS BED BOUND, LOWER EXTREMETY CONTRACTED REPOSITIONED PT EVRY 2 HOURS AND NEEDED. SKIN INTACT APPLIED PATCH ON HIS SACRUM BECAUSE ITS BONY PROMINENT. IV ACCESS ON LEFT HAND 20 GAUGE,PATENT AND INTACT AND SALINE LOCKED. SAFETY MEASURES MAINTAINED, BED IN LOWEST AND LOCKED POSITION, SIDE RAILS UP, CALL LIGHT WITHIN REACH, BED ALARM ON. KEPT RESTED AND COMFORTABLE. ENDORSED TO [facility] SHIFT FOR MARIMAR.
--- NOTE | 2021-12-12 18:56 | NUR ---
MUFFLE OPERATOR OPENING NOTES: PATIENT AWAKE, ABLE TO VERBALIZE FEW WORDS ABLE FOLLOWS SIMPLE INSTRUCTIONS. NO RESPIRATORY DISTRESS NOTED ON ROOM AIR AND SATURATING WELL. ON EXTERNAL SPECIAL ASSETS OFFICER READING A-FIB CONTROLLED. PATIENT IS BED BOUND, LOWER EXTREMITY CONTRACTED REPOSITIONED PT EVRY 2 HOURS AND NEEDED. SKIN INTACT APPLIED PATCH ON HIS SACRUM BECAUSE ITS BONY PROMINENT. IV ACCESS ON LEFT HAND 20 GAUGE,PATENT AND INTACT AND SALINE LOCKED. SAFETY MEASURES MAINTAINED, BED IN LOWEST AND LOCKED POSITION, SIDE RAILS UP, CALL LIGHT WITHIN REACH, BED ALARM ON. KEPT RESTED AND COMFORTABLE. ENDORSED TO NOC SHIFT FOR MARIMAR. Addendum: 12/12/21 at 1857 by MERLY ALONSO RN ERROR ITS CLOSING NOTES NOT OPENING
--- NOTE | 2021-12-12 19:05 | NUR ---
RN OPENING NOTES RECEIVED PATIENT ON BED, A/O x 1, NON VERBAL, ABLE TO FOLLOW SIMPLE COMMAND. ON ROOM AIR SATING AT 97%. RESPIRATORY EVEN AND UNLABORED, NO SOB NOTED. AFEBRILE, NO S/S OF DISTRESS NOTED. PATIENT WITH RIGHT FOREARM # 22, FLUSHED WITH NS, NO S/S OF INFILTRATION NOTED AT SITE. ALL SAFETY MEASURE PROVIDED. BED IN LOWEST POSITION, LOCKED. BED ALARM ARMED. CONTINUE TO MONITOR.
[2021-12-12 20:00] VITALS: BP 87/50
[2021-12-12] MEDS: ATORVASTATIN 40 MG TABLET PO SCH (21:40)
[2021-12-13] VITALS: BP 90/44
[2021-12-13] MEDS: CEFTRIAXONE 1 G in IV D5W 50 ML IV SCH (00:58)
[2021-12-13 04:00] VITALS: BP 86/50
[2021-12-13 06:30] LABS: BASOPHILS # (AUTO) 0.1 K/uL (0.0-0.2); BASOPHILS % (AUTO) 0.7 % (0.0-2.0); EOSINOPHILS % (AUTO) 3.8 % (0.0-6.0); HEMATOCRIT 30 % (39-51); HEMOGLOBIN 9.9 g/dL (13.5-17.5); LYMPHOCYTES % (AUTO) 14.2 % (20.0-44.0); MEAN CORPUSCULAR HGB CONC 33 g/dl (31.0-36.0); MEAN CORPUSCULAR VOLUME 79 fL (80-96); MONOCYTES # (AUTO) 1.3 K/uL (0.1-1.30); MONOCYTES % (AUTO) 17.3 % (2.0-12.0); NEUTROPHILS # (AUTO) 4.7 K/uL (1.8-8.9); PLATELET COUNT (AUTO) 284 K/uL (150-450); RED BLOOD CELL COUNT(AUTO) 3.82 MIL/uL (4.5-6.0); WHITE BLOOD COUNT (AUTO) 7.3 K/uL (4.3-11.0)
[2021-12-13 07:14] LABS: ALBUMIN 2.3 g/dL (3.4-5.0); BILIRUBIN,TOTAL 0.5 mg/dL (0.2-1.0); CALCIUM, SERUM 8.9 mg/dL (8.5-10.1); CREATININE 0.7 mg/dL (0.6-1.3); MAGNESIUM 2.2 mg/dL (1.8-2.4); POTASSIUM 4.4 mmol/L (3.5-5.1); TOTAL PROTEIN, SERUM 6.3 g/dL (6.4-8.2)
--- NOTE | 2021-12-13 07:29 | NUR ---
RN NOTES PATIENT SLEEPING, BUT EASY TO AROUSED. RESPIRATORY EVEN AND UNLABORED, NO SOB NOTED. AFEBRILE, NO S/S OF DISTRESS NOTED. PATIENT WITH RIGHT FOREARM # 22, FLUSHED WITH NS, NO S/S OF INFILTRATION NOTED AT SITE. ALL DUE MEDS GIVEN. ALL SAFETY MEASURE PROVIDED. BED IN LOWEST POSITION, LOCKED. BED ALARM ARMED. REPORT GIVEN TO MORNING SHIFT NURSE FOR CONTINUITY OF CARE.
--- NOTE | 2021-12-13 07:31 | NUR ---
telephone answering service operator opening notes: PATIENT SLEEPING, BUT EASY TO AROUSE. RESPIRATION EVEN AND UNLABORED, NO SOB NOTED. AFEBRILE, NO S/S OF DISTRESS NOTED. PATIENT WITH RIGHT FOREARM SALINE LOCK# 22, FLUSHED WITH NS, NO S/S OF INFILTRATION NOTED AT SITE. ALL SAFETY MEASURE IN PLACE. BED IN LOWEST POSITION, LOCKED. BED ALARM ON. WILL MONITOR.
[2021-12-13] MEDS: LEVOTHYROXINE SODIUM 175 MCG TABLET PO SCH (07:53)
[2021-12-13 08:00] VITALS: BP 88/39
[2021-12-13 08:31] LABS: BAND % (MANUAL) 2 % (0.0-5.0); EOSINOPHILS % (MANUAL) 4 % (0-4); LYMPHOCYTES % (MANUAL) 12 % (16-48); MONOCYTES % (MANUAL) 12 % (0-11.0); NEUTROPHILS % (MANUAL) 70 (42-76)
[2021-12-13] MEDS: FERROUS SULFATE (325 MG) 325 MG/TAB TABLET PO SCH ×2 (08:47→16:59)
[2021-12-13] MEDS: MULTIVIT W/MINERALS 1 TAB TABLET PO SCH (08:48)
[2021-12-13] MEDS: DOCUSATE SODIUM 100 MG CAPSULE PO SCH (08:48)
[2021-12-13] MEDS: ENSURE ENLIVE 237 ML LIQUID (VANILLA) PO SCH ×3 (08:48→17:00)
[2021-12-13] MEDS: CHOLECALCIFEROL 1,000 UNIT TABLET (VIT D3) PO SCH (08:49)
[2021-12-13] MEDS: APIXABAN 5 MG TABLET PO SCH ×2 (08:51→21:36)
[2021-12-13] MEDS: METOPROLOL TARTRATE 25 MG TABLET PO SCH ×2 (09:00→16:02)
[2021-12-13] MEDS ORDERED: LISINOPRIL (10MG) 10 MG TABLET PO SCH (09:00)
[2021-12-13 12:00] VITALS: BP 99/36
[2021-12-13 16:00] VITALS: BP 95/47
--- NOTE | 2021-12-13 19:10 | NUR ---
FAMILY CONSUMER SCIENTIST CLOSING NOTE: PATIENT REMAINS ASLEEP, BUT EASILY AROUSABLE. ON RA WITH NO S/S OF RESPIRATORY DISTRESS. ON TELE MONITOR THAT READS AFIB CONTROLLED WITH HR OF 89 BPM. AFEBRILE, NO S/S OF PAIN/DISTRESS NOTED AT THIS TIME. PATIENT HAS RIGHT FOREARM SALINE LOCKED #22G, PATENT AND FLUSHING WELL, WITH NO S/S OF INFECTION AND INFILTRATION NOTED AT SITE. SAFETY, FALL, ASPIRATION AND PRESSURE ULCER PRECAUTIONS MAINTAINED: BED IN LOWEST AND LOCKED POSITION, BED ALARM ON, HOB ELEVATED, TURNED AND REPOSITIONED Q2H. WILL ENDORSE CONTINUITY OF CARE TO DRAFTER AUTOMOTIVE DESIGN LAYOUT RN.
--- NOTE | 2021-12-13 19:31 | NUR ---
RN OPENING NOTES: RECEIVED PT IN BED AWAKE, A/0 X1-2, NON-VERBAL BUT FOLLOW COMMANDS. ON ROOM AIR AND PT TOLERATED WELL. IV ACCESS ON RFA#22G INTACT AND PATENT. NO S/S OF INFILTRATIONS. NO FACIAL GRIMACING NOTED. NO ACUTE DISTRESS. ISOLATION PRECAUTION MAINTAINED. ALL SAFETY MEASURES IN PLACE. BED IN LOWEST POSITION AND LOCKED. SIDE RAILS UP X3, BED ALARM ON. PLACE CALL LIGHT WITH IN REACH. WILL CONTINUE TO MONITOR.
[2021-12-13 20:00] VITALS: BP 102/44
[2021-12-13] MEDS: ATORVASTATIN 40 MG TABLET PO SCH (21:35)
[2021-12-14] VITALS: BP 100/46
[2021-12-14] MEDS: CEFTRIAXONE 1 G in IV D5W 50 ML IV SCH (00:49)
[2021-12-14 04:00] VITALS: BP 95/42
[2021-12-14] MEDS: LEVOTHYROXINE SODIUM 175 MCG TABLET PO SCH (06:12)
--- NOTE | 2021-12-14 06:38 | NUR ---
RN CLOSING NOTES: PT IN BED AWAKE, A/0 X1-2, NON-VERBAL BUT FOLLOW COMMANDS. ON ROOM AIR AND PT TOLERATED WELL. O2 SAT 96%. IV ACCESS ON RFA#22G INTACT AND PATENT. NO S/S OF INFILTRATIONS. NO FACIAL GRIMACING NOTED. NO ACUTE DISTRESS. ALL DUE MEDS GIVEN ORDERED. ISOLATION PRECAUTION MAINTAINED. ALL SAFETY MEASURES IN PLACE. BED IN LOWEST POSITION AND LOCKED. SIDE RAILS UP X3, BED ALARM ON. PLACE CALL LIGHT WITH IN REACH. WILL ENDORSE TO MORNING SHIFT NURSE.
--- NOTE | 2021-12-14 07:17 | NUR ---
BENZENE WASHER OPERATOR OPENING NOTES: RECEIVED PT IN BED AWAKE, A/0 X1-2, NON-VERBAL BUT FOLLOW COMMANDS. RESPIRATION IS EVEN AND UNLABORED ON ROOM AIR AND PT TOLERATED WELL. IV ACCESS ON RFA#22G INTACT AND PATENT. NO S/S OF INFILTRATIONS. NO FACIAL GRIMACING NOTED. NO ACUTE DISTRESS. ISOLATION PRECAUTION MAINTAINED. ALL SAFETY MEASURES IN PLACE. BED IN LOWEST POSITION AND LOCKED. SIDE RAILS UP X3, BED ALARM ON. PLACE CALL LIGHT WITH IN REACH. WILL CONTINUE TO MONITOR.
[2021-12-14 08:00] VITALS: BP 90/50
[2021-12-14] MEDS: ENSURE ENLIVE 237 ML LIQUID (VANILLA) PO SCH ×2 (08:48→12:08)
[2021-12-14] MEDS: METOPROLOL TARTRATE 25 MG TABLET PO SCH (09:00)
[2021-12-14] MEDS: MULTIVIT W/MINERALS 1 TAB TABLET PO SCH (09:32)
[2021-12-14] MEDS: APIXABAN 5 MG TABLET PO SCH (09:32)
[2021-12-14] MEDS: FERROUS SULFATE (325 MG) 325 MG/TAB TABLET PO SCH (09:33)
[2021-12-14] MEDS: CHOLECALCIFEROL 1,000 UNIT TABLET (VIT D3) PO SCH (09:33)
[2021-12-14] MEDS: DOCUSATE SODIUM 100 MG CAPSULE PO SCH (09:33)
[2021-12-14 12:00] VITALS: BP 90/37
--- NOTE | 2021-12-14 14:47 | NUR ---
RN notes: called Jose Sparks gave report to DUYEN Dumas
[2021-12-14 16:00] VITALS: BP 102/65
--- NOTE | 2021-12-14 16:43 | NUR ---
INCLUSION INTERNSHIP NOTES: AMBULANCE CAME AND PICKED UP PT TO [facility], bp 96/54, SPOKE TO [facility] NURSE ROSANNA WHO SAID SHE ACCEPTS THIS BP, PT LEFT IN STABLE CONDITION
== END 2021-12-14 16:43 | DRG 177 ==
LOC: ER 21:15 → TELE1 12-10 03:10
PROVIDERS: ADMIT Nurse Practitioner Acute Care
DX: U07.1 COVID-19 (principal); G93.41 Metabolic encephalopathy; I21.A1 Myocardial infarction type 2; N39.0 Urinary tract infection, site not specified; D68.59 Other primary thrombophilia; E44.0 Moderate protein-calorie malnutrition; I42.9 Cardiomyopathy, unspecified; I48.19 Other persistent atrial fibrillation; I50.42 Chronic combined systolic (congestive) and diastolic (congestive) heart failure; Z68.1 Body mass index [BMI] 19.9 or less, adult; B96.20 Unspecified Escherichia coli [E. coli] as the cause of diseases classified elsewhere; E03.9 Hypothyroidism, unspecified; E78.5 Hyperlipidemia, unspecified; E87.6 Hypokalemia; F03.90 Unspecified dementia, unspecified severity, without behavioral disturbance, psychotic disturbance, mood disturbance, and anxiety; I11.0 Hypertensive heart disease with heart failure; Z79.01 Long term (current) use of anticoagulants; Z66 Do not resuscitate; I71.2 Thoracic aortic aneurysm, without rupture; I35.1 Nonrheumatic aortic (valve) insufficiency; D63.8 Anemia in other chronic diseases classified elsewhere; Z74.09 Other reduced mobility; I95.9 Hypotension, unspecified; Z96.641 Presence of right artificial hip joint
CPT/HCPCS: 36415; 71045-TC; 71250-TC; 80048-TC; 80053-TC; 80076-TC; 81001; 83605-TC; 83735-TC; 83880; 84100-TC; 84484-TC; 85025-TC; 86140-TC; 87040-TC; 87081-TC; 87086-TC; 87186-TC; 93307-TC; C9803; G0378; J0696; J7040; J7050; J7060

== ENCOUNTER 2022-10-24 10:30 | Inpatient (IN) | payer MEDICARE, OTHER ==
[~2022-10-24] VITALS: Ht 167.6 cm; Wt 41.7 kg
--- NOTE | 2022-10-24 10:45 | NUR ---
AINYA OLEARY FROM [facility]ARE [facility], C/O CHEST PAIN THIS MORNING REFUSING MEALS AND LOSING WEIGHT. THE PATIENT IS ALERT AND ORIENTED X1. RESPIRATION REGULAR AND UNLABORED. THE PATIENT IS ATTACHED TO THE MONITOR. WARM BLANKET PROVIDED FOR COMFORT. WILL CONTINUE TO MONITOR THE PATIENT.
[2022-10-24 11:59] LABS: BASOPHILS # (AUTO) 0.1 K/uL (0.0-0.2); EOSINOPHILS % (AUTO) 2.9 % (0.0-6.0); HEMATOCRIT 37 % (39-51); HEMOGLOBIN 11.7 g/dL (13.5-17.5); LYMPHOCYTES % (AUTO) 12.9 % (20.0-44.0); MEAN CORPUSCULAR HGB CONC 32 g/dl (31.0-36.0); MEAN CORPUSCULAR VOLUME 81 fL (80-96); MONOCYTES # (AUTO) 0.9 K/uL (0.1-1.30); MONOCYTES % (AUTO) 11.3 % (2.0-12.0); NEUTROPHILS # (AUTO) 5.5 K/uL (1.8-8.9); NEUTROPHILS % (AUTO) 71.9 % (43.0-81.0); PLATELET COUNT (AUTO) 321 K/uL (150-450); RED BLOOD CELL COUNT(AUTO) 4.53 MIL/uL (4.5-6.0); WHITE BLOOD COUNT (AUTO) 7.6 K/uL (4.3-11.0)
--- NOTE | 2022-10-24 12:16 | NUR ---
PER PATIENT AND FAMILY MEMBER THE PATIENT IS CONTINENT AND WOULD USE URINAL TO PROVIDE URINE.
[2022-10-24 12:26] LABS: ALANINE AMINOTRANSFERASE 29 U/L (12-78); ALBUMIN 2.8 g/dL (3.4-5.0); ALKALINE PHOSPHATASE 79 U/L (46-116); ASPARTATE AMINOTRANSFERASE 34 U/L (15-37); BILIRUBIN,DIRECT 0.2 mg/dL (0.0-0.2); BILIRUBIN,TOTAL 0.8 mg/dL (0.2-1.0); CALCIUM, SERUM 9.4 mg/dL (8.5-10.1); CARBON DIOXIDE 24 mmol/L (21-32); CHLORIDE 105 mmol/L (98-107); CREATININE 0.5 mg/dL (0.6-1.3); GLUCOSE 96 mg/dL (74-106); POTASSIUM 4.6 mmol/L (3.5-5.1); SODIUM SERUM 137 mmol/L (136-145); TOTAL PROTEIN, SERUM 6.9 g/dL (6.4-8.2); UREA NITROGEN, BLOOD 17 mg/dL (7-18)
--- NOTE | 2022-10-24 12:30 | NUR ---
SUBMITTED MOVE SHEET
--- NOTE | 2022-10-24 12:32 | NUR ---
tap and die maker technician at the bedside
--- NOTE | 2022-10-24 12:41 | NUR ---
covid swab done and sent to the lab
[2022-10-24] MEDS ORDERED: ASPIRIN 325 MG TABLET ONE (12:43)
[2022-10-24] MEDS ORDERED: ASPIRIN EC 325 MG TABLET.DR PO ONE (13:00)
--- NOTE | 2022-10-24 14:50 | NUR ---
REPORT GIVEN TO NURSE CAMARA FOR MARIMAR
--- NOTE | 2022-10-24 16:04 | NUR ---
THE PATIENT IS TRANSFERED TO ROOM 310-2 IN STABLE CONDITION AND PER ACLS POLICY.
--- NOTE | 2022-10-24 16:10 | NUR ---
AIR QUALITY TECHNICIAN NOTES; RECEIVED PATIENT FROM ER VIA GURNEY ,AWAKE ON STABLE CONDITION, TRANSFER TO ROOM 310-2, PATIENT IS A/O X1, ON ROOM AIR WITH NO . NO COMPLAINED OF CHEST PAIN. IV LINE AT LEFT ARM G#20 SL PATENT, INTACT, FLUSHES WELL. PATIENT NOT ABLE TO PARTICIPATE DURING ASSESSMENT, SKIN ASSESSMENT DONE, PHOTO TAKEN AND DOCUMENTED. INVENTORIES BELONGINGS DOCUMENTED. PATIENT WAS CLEAN AND DRY, REMIND PATIENT TO USE CALL LIGHTS WHEN NEEDED ASSISTANCE, ALL NEEDS MET WILL CONTINUE TO MONITOR.
[2022-10-24] MEDS ORDERED: ENOXAPARIN SODIUM 40 MG/0.4 ML DISP.SYRIN SQ SCH (17:00)
[2022-10-24] MEDS ORDERED: ACETAMINOPHEN 325 MG TABLET PO PRN (17:00)
[2022-10-24] MEDS ORDERED: ONDANSETRON HCL/PF 4 MG/2 ML VIAL IVP PRN (17:00)
--- NOTE | 2022-10-24 18:15 | NUR ---
RN NOTE RECEIVED A CALL FROM ALEYDA MAYES. PATIENT TROPONIN LEVEL IS 111. INFORMED DR. MANN.
[2022-10-24] MEDS: METOPROLOL TARTRATE 25 MG TABLET PO SCH (18:27)
[2022-10-24] MEDS: ISOSORBIDE MONONITRATE (30MG) 30 MG TAB.SR.24H PO SCH (18:44)
--- NOTE | 2022-10-24 19:00 | NUR ---
HEAD ANIMAL KEEPER CLOSING NOTE PATIENT IN BED, AWAKE ON STABLE CONDITION, A/OX1-2, ON ROOM AIR WITH NO /SOB, NO SIGNS OF DISTRESS AND NO COMPLAINED OF CHEST PAIN. IV LINE AT LEFT ARM G#20 SL PATENT, INTACT, AND FLUSHES WELL. PATIENT WAS CLEAN AND DRY, ALL DUE MEDS GIVEN. SAFETY MEASURES IN PLACE. BED LOCKED IN LOWEST POSITION. CALL LIGHT AND TABLE WITHIN REACH. SIDE RAILS UP X2. BED ALARM ON. WILL ENDORSE TO THE EMTS NURSE FOR MARIMAR
--- NOTE | 2022-10-24 19:30 | NUR ---
PRACTICE LEAD OPENING NOTE RECEIVED PATIENT IN BED, AWAKE. A/O X1, LOOKS AT RN AND MOVES ARM RESPONSE, SOMETIMES VERBAL, MOSTLY UNABLE TO FOLLOW INSTRUCTIONS. ON ROOM AIR WITH NO /SOB, NO SIGNS OF DISTRESS AND NO COMPLAINED OF CHEST PAIN. ON DOCUMENT PROCESSING SPECIALIST READING CONTROLLED AFIB, 94 HR. IV LINE AT LEFT AC #20G SL, PATENT, INTACT, FLUSHES WELL. SAFETY MEASURES IN PLACE: BED LOCKED IN LOWEST POSITION, SIDE RAILS UP X3, BED ALARM ON, CALL LIGHT AND TABLE WITHIN REACH. WILL CONTINUE TO MONITOR AND ASSIST.
[2022-10-24 20:00] VITALS: BP_SYST 149; BP_SYST 94; BP_DIAS 46; BP_DIAS 82
--- NOTE | 2022-10-24 20:02 | NUR ---
RN NOTE PATIENT NOT ABLE TO PARTICIPATE DURING ASSESSMENT, CALLED AGUSTIN MORIN AND SPOKE TO HOLLIS GELLER TO GET PATIENT'S INFORMATION AND HISTORY.
[2022-10-24] MEDS: ATORVASTATIN 40 MG TABLET PO SCH (22:00)
[2022-10-24] MEDS ORDERED: ATORVASTATIN 10 MG TABLET PO SCH (22:00)
--- NOTE | 2022-10-24 22:45 | NUR ---
RN NOTE: PT AROUSABLE BUT UNABLE TO FOLLOW COMMANDS. NURSING SWALLOW EVAL FAILED AT THIS TIME. LIPITOR SCHEDULED FOR 2200 HELD.
[2022-10-25] VITALS (9 sets, daily range): BP systolic 89–106; BP diastolic 43–55
--- NOTE | 2022-10-25 00:21 | NUR ---
RN NOTE: CRITICAL LAB VALUE REPORT: TROPONIN 120. NOTIFIED SAMPLE SELECTOR SOSA DANG, NO NEW ORDERS.
--- NOTE | 2022-10-25 06:00 | NUR ---
RN NOTE: CONFIRMED DNR/DNI CODE STATUS BASED ON POLST WITH OPERATIONS INTELLIGENCE SUPERINTENDENT SOSA DANG, AGREED TO PUT IN ORDER.
[2022-10-25 06:18] LABS: BASOPHILS # (AUTO) 0.1 K/uL (0.0-0.2); BASOPHILS % (AUTO) 1.3 % (0.0-2.0); EOSINOPHILS % (AUTO) 2.9 % (0.0-6.0); HEMATOCRIT 38 % (39-51); HEMOGLOBIN 11.9 g/dL (13.5-17.5); LYMPHOCYTES # (AUTO) 1.1 K/uL (0.8-4.8); LYMPHOCYTES % (AUTO) 14.3 % (20.0-44.0); MEAN CORPUSCULAR HGB CONC 32 g/dl (31.0-36.0); MEAN CORPUSCULAR VOLUME 81 fL (80-96); NEUTROPHILS # (AUTO) 5.4 K/uL (1.8-8.9); NEUTROPHILS % (AUTO) 68.5 % (43.0-81.0); PLATELET COUNT (AUTO) 351 K/uL (150-450); RED BLOOD CELL COUNT(AUTO) 4.65 MIL/uL (4.5-6.0); WHITE BLOOD COUNT (AUTO) 7.9 K/uL (4.3-11.0)
[2022-10-25 06:38] LABS: CALCIUM, SERUM 9.4 mg/dL (8.5-10.1); CREATININE 0.6 mg/dL (0.6-1.3); MAGNESIUM 2.3 mg/dL (1.8-2.4); PHOSPHORUS 3.4 mg/dL (2.5-4.9); POTASSIUM 4.5 mmol/L (3.5-5.1)
--- NOTE | 2022-10-25 06:54 | NUR ---
SUPERVISOR DATA PROCESSING CLOSING NOTE PATIENT IN BED, AWAKE. A/O X0-1, LOOKS AT RN AND MOVES ARM RESPONSE, SOMETIMES VERBAL, MOSTLY UNABLE TO FOLLOW INSTRUCTIONS. STABLE ON ROOM AIR WITH NO SOB, NO SIGNS OF DISTRESS AND NO COMPLAINED OF CHEST PAIN. ON SURFACE GRINDER READING CONTROLLED AFIB, 108 HR. IV LINE AT LEFT AC #20G SL, PATENT, INTACT, FLUSHES WELL. ALL CARE PROVIDED AND MEDS TOLERATED WELL. SAFETY MEASURES MAINTAINED: BED LOCKED IN LOWEST POSITION, SIDE RAILS UP X3, BED ALARM ON, CALL LIGHT AND TABLE WITHIN REACH. WILL ENDORSE MARIMAR TO DAY SHIFT NURSE.
--- NOTE | 2022-10-25 07:15 | NUR ---
LEGAL [employer] OPENING NOTE RECEIVED PATIENT IN BED, AWAKE. A/O X1-2, FOLLOW SIMPLE COMMAND, VERBALLY RESPONSIVE, ON ROOM AIR WITH NO /SOB, NO SIGNS OF DISTRESS AND NO COMPLAINED OF CHEST PAIN. ON TISSUE SPECIALIST READING CONTROLLED AFIB, 96 HR. IV LINE AT LAC #20G SL, PATENT, INTACT, FLUSHES WELL. SAFETY MEASURES IN PLACE: BED LOCKED IN LOWEST POSITION, SIDE RAILS UP X3, BED ALARM ON, CALL LIGHT AND TABLE WITHIN EASY REACH. WILL CONTINUE TO MONITOR AND ASSIST.
[2022-10-25] MEDS: LEVOTHYROXINE SODIUM 175 MCG TABLET PO SCH (07:57)
--- NOTE | 2022-10-25 08:32 | NUR ---
RN NOTES URINE SPECIMEN COLLECTED FOR U/A AND CX, DITCH WORKER ON UNIT AND GAVE THE SPECIMEN.
[2022-10-25] MEDS: ASPIRIN 81 MG TAB.CHEW PO SCH (08:33)
[2022-10-25] MEDS: METOPROLOL TARTRATE 25 MG TABLET PO SCH ×2 (08:33→17:00)
[2022-10-25] MEDS: FUROSEMIDE 20 MG TABLET PO SCH (08:33)
[2022-10-25] MEDS: APIXABAN 5 MG TABLET PO SCH ×2 (08:33→17:11)
[2022-10-25] MEDS: LISINOPRIL (10MG) 10 MG TABLET PO SCH (08:34)
[2022-10-25] MEDS: ISOSORBIDE MONONITRATE (30MG) 30 MG TAB.SR.24H PO SCH (08:43)
--- NOTE | 2022-10-25 08:43 | NUR ---
WOUND CARE CONSULT: PT PRESENTS CACHECTIC AND CONTRACTED WITH SACRAL STAGE 3 PRESSURE ULCER, REDNESS/DISCOLORATION TO BACK AND UPPER EXTREMITIES, PRESENT ON ADMISSION. RECOMMENDATIONS MADE FOR SKIN PROTECTION AND WOUND CARE. DISCUSSED WITH NURSING STAFF. DR TAVERAS CALLED FOR SURGICAL CONSULT. PT TO BE PLACED ON JOHN ISOFLEX LOW AIRLOSS BED. IN AGREEMENT WITH PLAN OF CARE. DIETARY CONSULT IN PLACE. Addendum: 10/25/22 at 0844 by PABLITO VELAZQUEZ WNDNU Amended: Links added.
[2022-10-25 09:00] LABS: BILIRUBIN,URINE 1+ (NEGATIVE); COLOR,URINE AMBER (YELLOW); LEUKOCYTE ESTERASE ,URINE 3+ (NEGATIVE); NITRITE, URINE POSITIVE (NEGATIVE); PROTEIN,URINE 2+ mg/dl (NEGATIVE); UGLUCOSE NEGATIVE (NEGATIVE); UROBILINOGEN,URINE 0.2 EU/dL (0.2)
[2022-10-25 09:02] LABS: BACTERIA,URINE MANY /HPF (None Seen); RBC,URINE 51-80 /HPF (0-2); SQUAMOUS EPITHELIAL CELL,UR Few /HPF (None Seen); WBC,URINE TOO NUMEROUS TO COUN /HPF (0-3)
[2022-10-25] MEDS: THERAHONEY GEL 1.5 OZ TUBE TP SCH (09:49)
--- NOTE | 2022-10-25 10:04 | NUR ---
RN NOTE PATIENT HAS NOTED EPISODE OF UNCONTROLLED AFIB AND NOTIFIED DR. BARRAGAN WHO IS ON UNIT AND MADE AWARE.
[2022-10-25] MEDS ORDERED: ALBU18HF2 IH (10:30)
[2022-10-25] MEDS ORDERED: LATA2.5D15 EACHEYE (10:30)
[2022-10-25] MEDS ORDERED: FERR325T23 PO (10:30)
[2022-10-25] MEDS ORDERED: LACT-246 PO (10:30)
[2022-10-25] MEDS ORDERED: ALBUTEROL FS 2.5 MG/0.5 ML VIAL.NEB IH PRN (11:30)
[2022-10-25] MEDS ORDERED: NA PHOS,M-B/NA PHOS,DI-BA 1 EA ENEMA RC PRN (11:30)
[2022-10-25] MEDS: CEFTRIAXONE 1 G in IV D5W 50 ML IV SCH (11:56)
[2022-10-25] MEDS: ENSURE ENLIVE 237 ML LIQUID (VANILLA) PO SCH ×2 (12:19→17:12)
[2022-10-25] MEDS: PROSOURCE / PROSTAT (PYXIS) 30 ML UDC GT SCH ×2 (12:19→17:12)
[2022-10-25] MEDS: ARGININE/GLUTAMINE/CALCIUM BMB 1 EACH POWD.PACK PO SCH (17:15)
--- NOTE | 2022-10-25 18:36 | NUR ---
CHILD DEVELOPMENT SPECIALIST CLOSING NOTE RECEIVED PATIENT IN BED, AWAKE. A/O X1-2, FOLLOW SIMPLE COMMAND, VERBALLY RESPONSIVE, ON ROOM AIR WITH NO /SOB, NO SIGNS OF DISTRESS AND NO COMPLAINED OF CHEST PAIN. ON DIRECTOR OF PUBLIC WORKS READING CONTROLLED AFIB, 96 HR. IV LINE AT LAC #20G SL, PATENT, INTACT, FLUSHES WELL. SAFETY MEASURES IN PLACE AND MAINTAINED AT ALL TIMES, BED LOCKED IN LOWEST POSITION, SIDE RAILS UP X3, BED ALARM ON, CALL LIGHT AND TABLE WITHIN EASY REACH. SCHEDULED MEDICATIONS ADMINISTERED, PATIENT WAS TURNED AND REPOSITIONED PER PROTOCOL, ALL NEEDS ATTENDED AND ANTICIPATED, WILL ENDORSE TO INSURANCE SERVICE REPRESENTATIVE NURSE. Addendum: 10/25/22 at 1840 by ROCK SAUD KELLER RN CHILD DEVELOPMENT SPECIALIST CLOSING NOTE RECEIVED PATIENT IN BED, AWAKE. A/O X1-2, FOLLOW SIMPLE COMMAND, VERBALLY RESPONSIVE, ON ROOM AIR WITH NO /SOB, NO SIGNS OF DISTRESS AND NO COMPLAINED OF CHEST PAIN. ON DIRECTOR OF PUBLIC WORKS READING CONTROLLED AFIB, 107 HR. IV LINE AT LAC #20G SL, PATENT, INTACT, FLUSHES WELL. SAFETY MEASURES IN PLACE AND MAINTAINED AT ALL TIMES, BED LOCKED IN LOWEST POSITION, SIDE RAILS UP X3, BED ALARM ON, CALL LIGHT AND TABLE WITHIN EASY REACH. SCHEDULED MEDICATIONS ADMINISTERED, PATIENT WAS TURNED AND REPOSITIONED PER PROTOCOL, ALL NEEDS ATTENDED AND ANTICIPATED, WILL ENDORSE TO INSURANCE SERVICE REPRESENTATIVE NURSE.
--- NOTE | 2022-10-25 19:20 | NUR ---
ENTERTAINMENT PRODUCTION PROFESSIONAL OPENING NOTE RECEIVED PATIENT IN BED, SLEEPING. PT A/O X1-2, ABLE TO FOLLOW SIMPLE COMMAND, VERBALLY RESPONSIVE. ON ROOM AIR WITH NO SOB, NO SIGNS OF DISTRESS AND NO COMPLAINED OF CHEST PAIN. ON TOOL GRINDER OPERATOR SURFACE READING CONTROLLED AFIB. IV LINE TO LEFT AC #20G SL, PATENT, INTACT, AND FLUSHES WELL. SAFETY MEASURES IN PLACE: BED LOCKED IN LOWEST POSITION, SIDE RAILS UP X3, BED ALARM ON, CALL LIGHT AND TABLE WITHIN EASY REACH. WILL CONTINUE TO MONITOR AND PATIENT.
[2022-10-25] MEDS: ATORVASTATIN 40 MG TABLET PO SCH (22:17)
[2022-10-25] MEDS: LATANOPROST EYE DROP 0.005% 2.5 ML BOTTLE EACHEYE SCH (22:17)
[2022-10-25] MEDS ORDERED: IV NS 0.9% 500 ML IV ONE (23:30)
--- NOTE | 2022-10-25 23:30 | NUR ---
NET WEB APPLICATION DEVELOPER NOTE PT HAS UNCONTROLLED AFIB, WITH HR RANGING FROM 80 UP TO 160. ALSO PT'S BP WAS LOW 89/49. NOW BP IS 92/44. PT'S TROPONIN LEVEL IS 135 FROM 120. MD AGUS MANN CALLED, AND MADE AWARE. ORDERED SMALL FLUID BOLUS OF NS 500ML. ORDER CARRIED OUT.
[2022-10-26 04:15] VITALS: BP 91/45
[2022-10-26 06:15] LABS: BASOPHILS # (AUTO) 0.1 K/uL (0.0-0.2); BASOPHILS % (AUTO) 1.1 % (0.0-2.0); EOSINOPHILS % (AUTO) 1.7 % (0.0-6.0); HEMATOCRIT 34 % (39-51); HEMOGLOBIN 11.1 g/dL (13.5-17.5); MEAN CORPUSCULAR HGB CONC 32 g/dl (31.0-36.0); MEAN CORPUSCULAR VOLUME 80 fL (80-96); MONOCYTES # (AUTO) 1.2 K/uL (0.1-1.30); MONOCYTES % (AUTO) 15.2 % (2.0-12.0); NEUTROPHILS # (AUTO) 5.6 K/uL (1.8-8.9); PLATELET COUNT (AUTO) 343 K/uL (150-450)
[2022-10-26 06:29] LABS: CALCIUM, SERUM 9.5 mg/dL (8.5-10.1); CREATININE 0.8 mg/dL (0.6-1.3); POTASSIUM 4.2 mmol/L (3.5-5.1)
--- NOTE | 2022-10-26 06:50 | NUR ---
MOTOR BUILDER WINDER CLOSING NOTE LEFT PATIENT IN BED, SLEEPING. PT A/O X1-2, ABLE TO FOLLOW SIMPLE COMMAND, VERBALLY RESPONSIVE. ON ROOM AIR WITH NO SOB, NO SIGNS OF DISTRESS AND NO COMPLAINED OF CHEST PAIN. ON ENTRY LEVEL AUTOMOTIVE TECHNICIAN READING CONTROLLED AFIB. IV LINE TO LEFT AC #20G SL, PATENT, INTACT, AND FLUSHES WELL. CONDOM CATH IN PLACE: 300 ML OF DARK YELLOW URINE EMPTIED. JASPER FROM LAB CALLED TO ENDORSE PT'S CRITICAL LAB. PT 'S BLOOD CULTURE, AEROBIC IS GRAM POSITIVE COCCI. SAFETY MEASURES IN PLACE: BED LOCKED IN LOWEST POSITION, SIDE RAILS UP X3, BED ALARM ON, CALL LIGHT AND TABLE WITHIN EASY REACH. WILL ENDORSE PATIENT TO INCOMING SHIFT NURSE FOR MARIMAR.
--- NOTE | 2022-10-26 07:20 | NUR ---
PROPAGATION MANAGER OPENING NOTE RECEIVED PATIENT ASLEEP IN BED BUT EASILY AROUSABLE,. A/O 1-2, VERBALLY RESPONSIVE AND ABLE TO FOLLOW SIMPLE COMMAND, TOLERATING ROOM AIR, WITH EVEN AND UNLABORED BREATHING, NO SIGNS OF DISTRESS. ON TELE MONITOR READING CONTROLLED AFIB, 91 HR. IV ACCESS ON LAC #20G SL, PATENT, INTACT. SAFETY MEASURES IN PLACE: BED LOCKED IN LOWEST POSITION, SIDE RAILS UP X3, BED ALARM ON, CALL LIGHT AND TABLE WITHIN EASY REACH. WILL CONTINUE WITH THE PLAN OF CARE.
[2022-10-26] MEDS: LEVOTHYROXINE SODIUM 175 MCG TABLET PO SCH (08:16)
[2022-10-26] MEDS: FUROSEMIDE 20 MG TABLET PO SCH (09:00)
[2022-10-26] MEDS: LISINOPRIL (10MG) 10 MG TABLET PO SCH (09:00)
--- NOTE | 2022-10-26 09:16 | NUR ---
SENIOR ENGINEERING TECHNICIAN NOTE SEEN AND EXAMINED BY DR. BARRAGAN.
[2022-10-26 09:19] VITALS: BP 97/47
[2022-10-26] MEDS: ENSURE ENLIVE 237 ML LIQUID (VANILLA) PO SCH ×3 (09:29→16:27)
[2022-10-26] MEDS: ARGININE/GLUTAMINE/CALCIUM BMB 1 EACH POWD.PACK PO SCH ×2 (09:30→16:24)
[2022-10-26] MEDS: THERAHONEY GEL 1.5 OZ TUBE TP SCH (09:30)
[2022-10-26] MEDS: PROSOURCE / PROSTAT (PYXIS) 30 ML UDC GT SCH ×3 (09:30→16:23)
[2022-10-26] MEDS: APIXABAN 5 MG TABLET PO SCH ×2 (09:31→16:25)
[2022-10-26] MEDS: FERROUS SULFATE (325 MG) 325 MG/TAB TABLET PO SCH (09:32)
[2022-10-26] MEDS: ASPIRIN 81 MG TAB.CHEW PO SCH (09:32)
[2022-10-26] MEDS: METOPROLOL TARTRATE 25 MG TABLET PO SCH ×2 (09:34→16:26)
[2022-10-26] MEDS: ISOSORBIDE MONONITRATE (30MG) 30 MG TAB.SR.24H PO SCH (09:35)
--- NOTE | 2022-10-26 10:25 | NUR ---
SENIOR ENVIRONMENTAL ENGINEER NOTE INFORMED HOSPITALIST RANJIT NEAL OF PATIENT LATEST BP-98/56 HR-91 AND HOLDING FUROSEMIDE AND LISINOPRIL DOSE FOR NOW AT 0900.
[2022-10-26] MEDS: CEFTRIAXONE 1 G in IV D5W 50 ML IV SCH (11:54)
[2022-10-26] MEDS ORDERED: VANCOMYCIN 1 GM in IV D5W 250ml IV ONE (12:00)
[2022-10-26] MEDS: DIGOXIN INJ 0.5 MG/2 ML AMPUL IV SCH ×2 (12:51→18:06)
[2022-10-26 13:09] VITALS: BP 129/67
[2022-10-26] MEDS ORDERED: IV NS 0.9% 1,000 ML IV ONE (18:30)
[2022-10-26 18:41] VITALS: BP 93/44
--- NOTE | 2022-10-26 18:51 | NUR ---
GRAPHIC TECHNICIAN CLOSING NOTES PATIENT RESTING IN BED ,A/O 1-2, VERBALLY RESPONSIVE AND ABLE TO FOLLOW SIMPLE COMMAND, STABLE ON ROOM AIR, WITH EVEN AND UNLABORED BREATHING, NO SIGNS OF DISTRESS. ON TELE MONITOR READING CONTROLLED AFIB 89 HR. IV ACCESS ON LAC #20G ON NS @ 50ML/HR , PATENT, INTACT. WOUND TREATMENT DONE, CONTINUE TURNING AND REPOSITIONING. VANCOMYCIN 1 GRAM LOADING DOSE GIVEN, NO ADVERSE REACTION NOTED. PATIENT'S FUROSEMIDE AND LISINOPRIL NOT GIVEN, HOSPITALIST RANJIT NEAL MADE AWARE. PATIENT'S BP CHECK MANUALLY LATEST BP 92/58. SAFETY MEASURES IN PLACE: BED LOCKED IN LOWEST POSITION, SIDE RAILS UP X3, BED ALARM ON, CALL LIGHT AND TABLE WITHIN EASY REACH. WILL CONTINUE WITH THE PLAN OF CARE.
--- NOTE | 2022-10-26 19:30 | NUR ---
CANCELLATION CLERK OPENING NOTE RECEIVED PATIENT AWAKE IN BED. A/O 1-2, VERBALLY RESPONSIVE AND ABLE TO FOLLOW SIMPLE COMMAND, TOLERATING ROOM AIR, WITH EVEN AND UNLABORED BREATHING. NO SIGNS OF DISTRESS. ON TELE MONITOR READING CONTROLLED AFIB. IV ACCESS TO LEFT AC #20G SL, PATENT, INTACT. SAFETY MEASURES IN PLACE: BED LOCKED IN LOWEST POSITION, SIDE RAILS UP X3, BED ALARM ON, CALL LIGHT AND TABLE WITHIN EASY REACH. WILL CONTINUE TO MONITOR PT.
[2022-10-26 20:00] VITALS: BP 96/40
[2022-10-26] MEDS: LATANOPROST EYE DROP 0.005% 2.5 ML BOTTLE EACHEYE SCH (21:40)
[2022-10-26] MEDS: ATORVASTATIN 40 MG TABLET PO SCH (21:40)
[2022-10-27] VITALS: BP 106/44
[2022-10-27] MEDS: DIGOXIN INJ 0.5 MG/2 ML AMPUL IV SCH (00:27)
[2022-10-27] MEDS: VANCOMYCIN 500 MG in IV D5W 100ml IV SCH ×3 (00:27→23:59)
[2022-10-27 04:00] VITALS: BP 111/78
--- NOTE | 2022-10-27 06:10 | NUR ---
MANAGER SAS CLOSING NOTE LEFT PATIENT AWAKE IN BED. A/O 1-2, VERBALLY RESPONSIVE AND ABLE TO FOLLOW SIMPLE COMMAND, TOLERATING ROOM AIR, WITH EVEN AND UNLABORED BREATHING. NO SIGNS OF DISTRESS. ON TELE MONITOR READING CONTROLLED AFIB, WITH HR :92. EKG COMPLETED BY RT, SHOWING A-FIB. NEW IV ACCESS INSERTED TO RIGHT FA #22G WITH NS RUNNING AT 50 ML/HR, IV PATENT, INTACT. SAFETY MEASURES IN PLACE: BED LOCKED IN LOWEST POSITION, SIDE RAILS UP X3, BED ALARM ON, CALL LIGHT AND TABLE WITHIN EASY REACH. WILL ENDORSE PT TO AM SHIFT NURSE FOR MARIMAR.
[2022-10-27 06:22] LABS: BASOPHILS # (AUTO) 0.1 K/uL (0.0-0.2); BASOPHILS % (AUTO) 0.5 % (0.0-2.0); HEMATOCRIT 35 % (39-51); LYMPHOCYTES # (AUTO) 1.1 K/uL (0.8-4.8); LYMPHOCYTES % (AUTO) 11.4 % (20.0-44.0); MEAN CORPUSCULAR HGB CONC 32 g/dl (31.0-36.0); MEAN CORPUSCULAR VOLUME 82 fL (80-96); MONOCYTES # (AUTO) 1.4 K/uL (0.1-1.30); MONOCYTES % (AUTO) 13.9 % (2.0-12.0); NEUTROPHILS # (AUTO) 7.3 K/uL (1.8-8.9); NEUTROPHILS % (AUTO) 73.2 % (43.0-81.0); PLATELET COUNT (AUTO) 349 K/uL (150-450); RED BLOOD CELL COUNT(AUTO) 4.27 MIL/uL (4.5-6.0)
[2022-10-27 06:48] LABS: CREATININE 0.6 mg/dL (0.6-1.3); POTASSIUM 4.4 mmol/L (3.5-5.1)
--- NOTE | 2022-10-27 07:12 | NUR ---
RESEARCH CHEF OPENING NOTE RECEIVED PATIENT COMFORTABLY SLEEPING IN BED BUT EASILY AROUSABLE,. A/O 1-2, VERBALLY RESPONSIVE AND ABLE TO FOLLOW SIMPLE COMMAND, TOLERATING ROOM AIR, WITH EVEN AND UNLABORED BREATHING, NO SIGNS OF DISTRESS. ON TELE MONITOR READING CONTROLLED AFIB . IV ACCESS ON RIGHT FA #22G WITH IVF RUNNING NS @ 50ML/HR, INFUSING WELL. SAFETY MEASURES IN PLACE: BED LOCKED IN LOWEST POSITION, SIDE RAILS UP X3, BED ALARM ON, CALL LIGHT AND TABLE WITHIN EASY REACH. WILL CONTINUE WITH THE PLAN OF CARE.
[2022-10-27] MEDS: LEVOTHYROXINE SODIUM 175 MCG TABLET PO SCH (07:51)
[2022-10-27 08:00] VITALS: BP 98/55
[2022-10-27] MEDS: LISINOPRIL (10MG) 10 MG TABLET PO SCH (09:00)
[2022-10-27] MEDS: PROSOURCE / PROSTAT (PYXIS) 30 ML UDC GT SCH ×3 (09:15→17:05)
[2022-10-27] MEDS: THERAHONEY GEL 1.5 OZ TUBE TP SCH (09:16)
[2022-10-27] MEDS: ARGININE/GLUTAMINE/CALCIUM BMB 1 EACH POWD.PACK PO SCH ×2 (09:16→17:05)
[2022-10-27] MEDS: ENSURE ENLIVE 237 ML LIQUID (VANILLA) PO SCH ×3 (09:16→17:08)
[2022-10-27] MEDS: FERROUS SULFATE (325 MG) 325 MG/TAB TABLET PO SCH (09:16)
[2022-10-27] MEDS: ASPIRIN 81 MG TAB.CHEW PO SCH (09:16)
[2022-10-27] MEDS: ISOSORBIDE MONONITRATE (30MG) 30 MG TAB.SR.24H PO SCH (09:17)
[2022-10-27] MEDS: METOPROLOL TARTRATE 25 MG TABLET PO SCH ×2 (09:17→17:05)
[2022-10-27] MEDS: APIXABAN 5 MG TABLET PO SCH ×2 (09:29→17:04)
--- NOTE | 2022-10-27 10:55 | NUR ---
PROCESSING OPERATOR NOTE SEEN AND EXAMINED BY HOSPITALIST RANJIT NEAL WITH ORDERS TO INCREASE IVF NS TO 70ML/HR, D/C FUROSEMIDE, INCREASE LEVOTHYROXINE TO 200MCG DAILY. CARRIED OUT ORDERS AND NOTED.
--- NOTE | 2022-10-27 11:14 | NUR ---
FIREBOAT OPERATOR NOTE LISINOPRIL WAS HELD BP 90/52, PATIENT HAS NO SIGNS AND SYMPTOMS OF HYPOTENSION.
--- NOTE | 2022-10-27 11:25 | NUR ---
INFANTRY INDIRECT FIRE CREWMEMBER NOTE RELAYED RESULT OF EKG TO DR. BARRAGAN WITH NEW ORDER RECEIVED TO START DIGOXIN 0.125MG DAILY FOR ATRIAL FIB. CARRIED OUT ORDER AND NOTED.
[2022-10-27] MEDS: DIGOXIN 0.125 MG TABLET PO SCH (11:30)
[2022-10-27] MEDS: CEFTRIAXONE 1 G in IV D5W 50 ML IV SCH (11:59)
[2022-10-27 12:00] VITALS: BP 90/52
[2022-10-27 16:00] VITALS: BP 98/52
--- NOTE | 2022-10-27 18:48 | NUR ---
CONSULTING SOLUTION DIRECTOR CLOSING NOTES PATIENT RESTING IN BED ,A/O 1-2, VERBALLY RESPONSIVE AND ABLE TO FOLLOW SIMPLE COMMAND, STABLE ON ROOM AIR, WITH EVEN AND UNLABORED BREATHING, NO SIGNS OF DISTRESS. ON TELE MONITOR READING CONTROLLED AFIB 71 HR. IV ACCESS ON RFA #22G ON NS @ 70ML/HR , PATENT, INTACT. WOUND TREATMENT DONE, CONTINUE TURNING AND REPOSITIONING. PATIENT'S BP CHECK MANUALLY SBP 90 BUT NO SIGN AND SYMPTOMS OF HYPOTENSION. PATIENT STILL FOR WOUND DEBRIDEMENT AND FOR WOUND CULTURE. SAFETY MEASURES IN PLACE: BED LOCKED IN LOWEST POSITION, SIDE RAILS UP X3, BED ALARM ON, CALL LIGHT AND TABLE WITHIN EASY REACH. WILL CONTINUE WITH THE PLAN OF CARE.
[2022-10-27] MEDS: IV NS 0.9% 1,000 ML IV PRN (18:52)
--- NOTE | 2022-10-27 19:30 | NUR ---
RN LVN OPENING NOTE RECEIVED PATIENT AWAKE IN BED. PATIENT IS A/O 1-2. PATIENT IS AWAKE. RESPONSIVE TO TACTILE STIMULI AND ABLE TO MAKE NEEDS KNOWN . ON ROOM AIR AND TOLERATING WELL EVEN AND UNLABORED BREATHING. NO SIGNS OF DISTRESS. ON TELE MONITOR READING AFIB. HEART RATE NOTED 62. IV ACCESS TO RIGHT FOREARM G # 22 INTACT AND PATENT AND SL. ALL SAFETY MEASURES IN PLACE: BED LOCKED IN LOWEST POSITION, SIDE RAILS UP X3, BED ALARM ON, CALL LIGHT AND TABLE WITHIN EASY REACH. HEAD OF THE BED ELEVATED FOR ASPIRATION PRECAUTION. TURN AND REPOSITION FOR COMFORT AND SKIN MANAGEMENT. WILL CONTINUE TO MONITOR CLOSELY.
[2022-10-27 21:13] VITALS: BP 122/44
[2022-10-27] MEDS: ATORVASTATIN 40 MG TABLET PO SCH (21:18)
[2022-10-27] MEDS: LATANOPROST EYE DROP 0.005% 2.5 ML BOTTLE EACHEYE SCH (21:18)
[2022-10-28] VITALS: BP 119/49
[2022-10-28 04:00] VITALS: BP 121/41
--- NOTE | 2022-10-28 06:31 | NUR ---
TAGMAN CLOSING NOTE PATIENT AWAKE IN BED. PATIENT IS A/O 1-2. PATIENT IS AWAKE. RESPONSIVE TO TACTILE STIMULI AND ABLE TO MAKE NEEDS KNOWN . ON ROOM AIR AND TOLERATING WELL EVEN AND UNLABORED BREATHING. NO SIGNS OF DISTRESS. ON TELE MONITOR READING AFIB . HEART RATE NOTED 63. IV ACCESS TO RIGHT FOREARM G # 22 INTACT AND PATENT AND RUNNING NS AT 70 ML/HR.ALL DUE MEDS GIVEN ORDER. ALL SAFETY MEASURES IN PLACE: BED LOCKED IN LOWEST POSITION, SIDE RAILS UP X3, BED ALARM ON, CALL LIGHT AND TABLE WITHIN EASY REACH. HEAD OF THE BED ELEVATED FOR ASPIRATION PRECAUTION. TURN AND REPOSITION FOR COMFORT AND SKIN MANAGEMENT. WILL ENDORSE FOR MARIMAR.
[2022-10-28 06:44] LABS: BASOPHILS % (AUTO) 0.7 % (0.0-2.0); EOSINOPHILS % (AUTO) 2.3 % (0.0-6.0); HEMATOCRIT 31 % (39-51); HEMOGLOBIN 9.6 g/dL (13.5-17.5); LYMPHOCYTES # (AUTO) 0.8 K/uL (0.8-4.8); LYMPHOCYTES % (AUTO) 13.6 % (20.0-44.0); MEAN CORPUSCULAR HGB CONC 31 g/dl (31.0-36.0); MEAN CORPUSCULAR VOLUME 82 fL (80-96); MONOCYTES # (AUTO) 1.1 K/uL (0.1-1.30); MONOCYTES % (AUTO) 18.1 % (2.0-12.0); NEUTROPHILS # (AUTO) 3.9 K/uL (1.8-8.9); NEUTROPHILS % (AUTO) 65.3 % (43.0-81.0); PLATELET COUNT (AUTO) 261 K/uL (150-450)
[2022-10-28 07:18] LABS: CARBON DIOXIDE 26 mmol/L (21-32); CHLORIDE 108 mmol/L (98-107); CREATININE 0.5 mg/dL (0.6-1.3); GLUCOSE 96 mg/dL (74-106); POTASSIUM 4.4 mmol/L (3.5-5.1); SODIUM SERUM 141 mmol/L (136-145); UREA NITROGEN, BLOOD 47 mg/dL (7-18)
--- NOTE | 2022-10-28 07:25 | NUR ---
RN OPENING NOTE RECEIVED PATIENT IN BED , AWAKE, A/O X1. NO SIGNS OF ACUTE DISTRESS NOTED. ON ROOM AIR, TOLERATING WELL. NO SOB NOTED, BREATHING EVEN AND UNLABORED. NO S/SX OF ANY PAIN AT THIS TIME. ON COMPOSITION INSTRUCTOR SHOWING CONTROLLED A-FIB, HR @91. WITH IV ACCESS ON RIGHT FOREARM #22G, INTACT AND PATENT, WITH NS RUNNING AT 70 ML/HR. SAFETY MEASURE IN PLACE. BED IN LOW AND LOCKED POSITION, SIDE RAILS UP X2, CALL LIGHT PLACED WITHIN EASY REACH. WILL CONTINUE TO MONITOR PATIENT.
[2022-10-28 07:37] LABS: BASOPHILS % (MANUAL) 0 % (0.0-2.0); EOSINOPHILS % (MANUAL) 4 % (0-4); LYMPHOCYTES % (MANUAL) 12 % (16-48); MONOCYTES % (MANUAL) 16 % (0-11.0); NEUTROPHILS % (MANUAL) 68 (42-76)
[2022-10-28] MEDS: LEVOTHYROXINE SODIUM 175 MCG TABLET PO SCH (08:12)
[2022-10-28 08:28] VITALS: BP 92/44
[2022-10-28] MEDS: ASPIRIN 81 MG TAB.CHEW PO SCH (08:36)
[2022-10-28] MEDS: FERROUS SULFATE (325 MG) 325 MG/TAB TABLET PO SCH (08:36)
[2022-10-28] MEDS: APIXABAN 5 MG TABLET PO SCH ×2 (08:41→17:02)
[2022-10-28] MEDS: ENSURE ENLIVE 237 ML LIQUID (VANILLA) PO SCH ×3 (08:42→17:03)
[2022-10-28] MEDS: DIGOXIN 0.125 MG TABLET PO SCH (08:42)
[2022-10-28] MEDS: PROSOURCE / PROSTAT (PYXIS) 30 ML UDC GT SCH ×3 (08:43→17:03)
[2022-10-28] MEDS: ARGININE/GLUTAMINE/CALCIUM BMB 1 EACH POWD.PACK PO SCH ×2 (08:44→17:03)
[2022-10-28] MEDS: METOPROLOL TARTRATE 25 MG TABLET PO SCH ×2 (08:45→17:00)
[2022-10-28] MEDS: ISOSORBIDE MONONITRATE (30MG) 30 MG TAB.SR.24H PO SCH (08:46)
[2022-10-28] MEDS: LISINOPRIL (10MG) 10 MG TABLET PO SCH (08:46)
[2022-10-28] MEDS: THERAHONEY GEL 1.5 OZ TUBE TP SCH (08:47)
[2022-10-28 09:00] VITALS: BP 92/40
[2022-10-28] MEDS: IV NS 0.9% 1,000 ML IV PRN (10:49)
[2022-10-28] MEDS: CEFTRIAXONE 1 G in IV D5W 50 ML IV SCH (11:08)
[2022-10-28] MEDS: VANCOMYCIN 500 MG in IV D5W 100ml IV SCH ×2 (11:50→23:08)
[2022-10-28 16:06] VITALS: BP 90/40
--- NOTE | 2022-10-28 18:36 | NUR ---
RN CLOSING NOTE PATIENT IN BED , ASLEEP, AROUSABLE TO VERBAL AND TACTILE STIMULI. NO SIGNS OF ACUTE DISTRESS NOTED. REMAINS STABLE ON ROOM AIR. NO SOB NOTED, BREATHING EVEN AND UNLABORED. NO S/SX OF ANY PAIN AT THIS TIME. CONTINUE ON SCREEN PRINTING MACHINE OPERATOR SHOWING CONTROLLED A-FIB, HR @79. IV ACCESS ON RIGHT FOREARM #22G, INTACT AND PATENT, WITH NS RUNNING AT 70 ML/HR. SAFETY MEASURE MAINTAINED. BED IN LOW AND LOCKED POSITION, SIDE RAILS UP X2, CALL LIGHT PLACED WITHIN EASY REACH. WILL ENDORSE TO NEXT SHIFT FOR CONTINUITY OF CARE.
--- NOTE | 2022-10-28 19:22 | NUR ---
WAREHOUSE FOREMAN OPENING NOTE RECEIVED PATIENT AWAKE IN BED. PATIENT IS A/O 1-2. PATIENT IS AWAKE. RESPONSIVE TO TACTILE STIMULI AND ABLE TO MAKE NEEDS KNOWN . ON ROOM AIR AND TOLERATING WELL EVEN AND UNLABORED BREATHING. NO SIGNS OF DISTRESS. ON TELE MONITOR READING AFIB . HEART RATE NOTED 79. IV ACCESS TO RIGHT FOREARM G # 22 INTACT AND PATENT AND RUNNING NS AT 70 ML/HR. ALL SAFETY MEASURES IN PLACE: BED LOCKED IN LOWEST POSITION, SIDE RAILS UP X3, BED ALARM ON, CALL LIGHT AND TABLE WITHIN EASY REACH. HEAD OF THE BED ELEVATED FOR ASPIRATION PRECAUTION. TURN AND REPOSITION FOR COMFORT AND SKIN MANAGEMENT. WILL CONTINUE TO MONITOR CLOSELY.
[2022-10-28 20:00] VITALS: BP 108/54
[2022-10-28] MEDS: ATORVASTATIN 40 MG TABLET PO SCH (21:05)
[2022-10-28] MEDS: LATANOPROST EYE DROP 0.005% 2.5 ML BOTTLE EACHEYE SCH (21:05)
[2022-10-29] VITALS: BP 123/47
[2022-10-29] MEDS: IV NS 0.9% 1,000 ML IV PRN ×2 (01:17→16:53)
[2022-10-29 04:00] VITALS: BP 118/53
[2022-10-29 05:12] VITALS: BP 118/53
[2022-10-29 05:43] LABS: BASOPHILS # (AUTO) 0.1 K/uL (0.0-0.2); BASOPHILS % (AUTO) 1.1 % (0.0-2.0); EOSINOPHILS % (AUTO) 3.2 % (0.0-6.0); HEMATOCRIT 29 % (39-51); HEMOGLOBIN 9.2 g/dL (13.5-17.5); LYMPHOCYTES # (AUTO) 0.9 K/uL (0.8-4.8); MEAN CORPUSCULAR HGB CONC 32 g/dl (31.0-36.0); MEAN CORPUSCULAR VOLUME 81 fL (80-96); MONOCYTES % (AUTO) 18.1 % (2.0-12.0); NEUTROPHILS # (AUTO) 3.4 K/uL (1.8-8.9); NEUTROPHILS % (AUTO) 61.6 % (43.0-81.0); PLATELET COUNT (AUTO) 277 K/uL (150-450); RED BLOOD CELL COUNT(AUTO) 3.58 MIL/uL (4.5-6.0); WHITE BLOOD COUNT (AUTO) 5.6 K/uL (4.3-11.0)
[2022-10-29 05:48] LABS: CALCIUM, SERUM 9.2 mg/dL (8.5-10.1); CARBON DIOXIDE 24 mmol/L (21-32); CHLORIDE 113 mmol/L (98-107); CREATININE 0.5 mg/dL (0.6-1.3); GLUCOSE 104 mg/dL (74-106); POTASSIUM 4.1 mmol/L (3.5-5.1); SODIUM SERUM 144 mmol/L (136-145); UREA NITROGEN, BLOOD 42 mg/dL (7-18)
--- NOTE | 2022-10-29 06:47 | NUR ---
PICKLING TANK OPERATOR CLOSING NOTE PATIENT AWAKE IN BED. PATIENT IS A/O 1-2. PATIENT IS AWAKE. RESPONSIVE TO TACTILE STIMULI AND ABLE TO MAKE NEEDS KNOWN . ON ROOM AIR AND TOLERATING WELL EVEN AND UNLABORED BREATHING. NO SIGNS OF DISTRESS. ON TELE MONITOR READING AFIB . HEART RATE NOTED 65. IV ACCESS TO RIGHT FOREARM G # 22 INTACT AND PATENT AND RUNNING NS AT 70 ML/HR.ALL DUE MEDS GIVEN ORDER. ALL SAFETY MEASURES IN PLACE: BED LOCKED IN LOWEST POSITION, SIDE RAILS UP X3, BED ALARM ON, CALL LIGHT AND TABLE WITHIN EASY REACH. HEAD OF THE BED ELEVATED FOR ASPIRATION PRECAUTION. TURN AND REPOSITION FOR COMFORT AND SKIN MANAGEMENT. WILL ENDORSE FOR MARIMAR.
--- NOTE | 2022-10-29 07:30 | NUR ---
RN OPENING NOTES RECEIVED PATIENT IN BED ASLEEP BUT AROUSABLE , A/0 X1-2 , NON VERBAL AND ROOM AIR WITH NO SOB OR DISTRESS NOTED , NO C/O OF PAIN AND DISCOMFORT , IV ACCESS ON THE RFA #22 G WITH NS @70 ML /HR , SAFETY MEASURES APPLIED , CALL LIGHT WITHIN REACH , SIDE RAILS UP X2 , WILL CONTINUE TO MONITOR FOR ANY CHANGES
[2022-10-29 08:00] VITALS: BP 115/53
[2022-10-29] MEDS: LEVOTHYROXINE SODIUM 175 MCG TABLET PO SCH (08:16)
[2022-10-29 09:24] LABS: BASOPHILS % (MANUAL) 0 % (0.0-2.0); EOSINOPHILS % (MANUAL) 4 % (0-4); LYMPHOCYTES % (MANUAL) 14 % (16-48); MONOCYTES % (MANUAL) 18 % (0-11.0); NEUTROPHILS % (MANUAL) 84 (42-76)
[2022-10-29] MEDS: ASPIRIN 81 MG TAB.CHEW PO SCH (09:46)
[2022-10-29] MEDS: DIGOXIN 0.125 MG TABLET PO SCH (09:47)
[2022-10-29] MEDS: LISINOPRIL (10MG) 10 MG TABLET PO SCH (09:47)
[2022-10-29] MEDS: ISOSORBIDE MONONITRATE (30MG) 30 MG TAB.SR.24H PO SCH (09:47)
[2022-10-29] MEDS: FERROUS SULFATE (325 MG) 325 MG/TAB TABLET PO SCH (09:48)
[2022-10-29] MEDS: ENSURE ENLIVE 237 ML LIQUID (VANILLA) PO SCH ×3 (09:49→17:00)
[2022-10-29] MEDS: PROSOURCE / PROSTAT (PYXIS) 30 ML UDC GT SCH ×3 (09:49→17:00)
[2022-10-29] MEDS: ARGININE/GLUTAMINE/CALCIUM BMB 1 EACH POWD.PACK PO SCH ×2 (09:49→17:01)
[2022-10-29] MEDS: METOPROLOL TARTRATE 25 MG TABLET PO SCH ×2 (09:50→16:59)
[2022-10-29] MEDS: APIXABAN 5 MG TABLET PO SCH ×2 (09:52→17:00)
[2022-10-29] MEDS: THERAHONEY GEL 1.5 OZ TUBE TP SCH (10:43)
[2022-10-29] MEDS: CEFTRIAXONE 1 G in IV D5W 50 ML IV SCH (11:54)
[2022-10-29] MEDS: VANCOMYCIN 500 MG in IV D5W 100ml IV SCH ×2 (12:43→23:21)
[2022-10-29 15:59] VITALS: BP 104/55
--- NOTE | 2022-10-29 19:29 | NUR ---
RN CLOSING NOTES PATIENT IN BED ASLEEP BUT AROUSABLE , A/0 X1-2 , NON VERBAL AND ROOM AIR WITH NO SOB OR DISTRESS NOTED , NO C/O OF PAIN AND DISCOMFORT , IV ACCESS ON THE RFA #22 G WITH NS @70 ML /HR , ALL DUE MEDS GIVEN ORDERED SAFETY MEASURES APPLIED , CALL LIGHT WITHIN REACH , SIDE RAILS UP X2 , ENDORSED TO NEXT SHIFT
--- NOTE | 2022-10-29 19:40 | NUR ---
MS RN Opening Note Received patient in bed; awake, alert and oriented x 1. On room air; tolerating well saturating @ 96%. Breathing even and nonlabored. Not in any form of respiratory or cardiac distress. No s/sx of pain or discomfort noted at this time. With IV access on right forearm 22g: patent and intact infusing with NS 1L running @ 70 ml/hr; flushes well. Fall and safety precautions initiated: head of bed elevated, call light and table within reach, side rails up x 2, bed in lowest locked position. Will continue to monitor throughout shift.
[2022-10-29 20:00] VITALS: BP 91/49
[2022-10-29] MEDS: LATANOPROST EYE DROP 0.005% 2.5 ML BOTTLE EACHEYE SCH (22:47)
[2022-10-29] MEDS: ATORVASTATIN 40 MG TABLET PO SCH (22:47)
[2022-10-30 06:13] LABS: BASOPHILS # (AUTO) 0.1 K/uL (0.0-0.2); BASOPHILS % (AUTO) 1.2 % (0.0-2.0); EOSINOPHILS % (AUTO) 3.2 % (0.0-6.0); HEMATOCRIT 31 % (39-51); HEMOGLOBIN 9.5 g/dL (13.5-17.5); LYMPHOCYTES # (AUTO) 0.9 K/uL (0.8-4.8); LYMPHOCYTES % (AUTO) 15.6 % (20.0-44.0); MEAN CORPUSCULAR HGB CONC 31 g/dl (31.0-36.0); MEAN CORPUSCULAR VOLUME 82 fL (80-96); MONOCYTES # (AUTO) 0.9 K/uL (0.1-1.30); MONOCYTES % (AUTO) 15.7 % (2.0-12.0); NEUTROPHILS # (AUTO) 3.7 K/uL (1.8-8.9); NEUTROPHILS % (AUTO) 64.3 % (43.0-81.0); PLATELET COUNT (AUTO) 274 K/uL (150-450); RED BLOOD CELL COUNT(AUTO) 3.72 MIL/uL (4.5-6.0); WHITE BLOOD COUNT (AUTO) 5.8 K/uL (4.3-11.0)
--- NOTE | 2022-10-30 06:30 | NUR ---
MS RN Closing Note Patient in bed; awake, a/o x 1. Stable on room air. In no acute distress. No s/sx of pain or discomfort noted at this time. With IV access on right forearm 22g: patent and intact infusing with NS 1L running @ 70 ml/hr; flushes well. All needs met. All due meds given as ordered. Fall and safety precautions maintained. Endorsed to incoming nurse for continuity of care.
[2022-10-30 06:58] LABS: CALCIUM, SERUM 8.6 mg/dL (8.5-10.1); CARBON DIOXIDE 22 mmol/L (21-32); CHLORIDE 110 mmol/L (98-107); CREATININE 0.3 mg/dL (0.6-1.3); GLUCOSE 87 mg/dL (74-106); POTASSIUM 4.1 mmol/L (3.5-5.1); SODIUM SERUM 141 mmol/L (136-145); UREA NITROGEN, BLOOD 30 mg/dL (7-18)
[2022-10-30 07:00] VITALS: BP 101/46
--- NOTE | 2022-10-30 08:18 | NUR ---
RN OPENING NOTE RECEIVED PATIENT IN BED, AO X 1, ABLE TO RESPONDS ALL PHYSICAL STIMULI. RESPIRATORY EVEN AND UNLABORED IN ROOM AIR. IN NO ACUTE RESPIRATORY DISTRESS OBSERVED. SKIN IS WARM TO TOUCH, KEEP CLEAN/DRY. KEPT ELEVATED HOB FOR ASPIRATION PRECAUTION/ENSURE AIRWAY, ALSO LOWEST BED POSITIONED. BED ALARM IS ON AT ALL TIMES FOR SAFETY. CALL LIGHT WITHIN REACH, WILL CONTINUE TO MONITOR.
[2022-10-30] MEDS: ASPIRIN 81 MG TAB.CHEW PO SCH (08:40)
[2022-10-30] MEDS: LEVOTHYROXINE SODIUM 175 MCG TABLET PO SCH (08:40)
[2022-10-30] MEDS: FERROUS SULFATE (325 MG) 325 MG/TAB TABLET PO SCH (08:40)
[2022-10-30] MEDS: DIGOXIN 0.125 MG TABLET PO SCH (08:41)
[2022-10-30] MEDS: PROSOURCE / PROSTAT (PYXIS) 30 ML UDC GT SCH ×3 (08:41→16:24)
[2022-10-30] MEDS: ENSURE ENLIVE 237 ML LIQUID (VANILLA) PO SCH ×3 (08:41→16:24)
[2022-10-30] MEDS: LISINOPRIL (10MG) 10 MG TABLET PO SCH (08:42)
[2022-10-30] MEDS: METOPROLOL TARTRATE 25 MG TABLET PO SCH ×2 (08:42→16:25)
[2022-10-30] MEDS: ISOSORBIDE MONONITRATE (30MG) 30 MG TAB.SR.24H PO SCH (08:42)
[2022-10-30] MEDS: ARGININE/GLUTAMINE/CALCIUM BMB 1 EACH POWD.PACK PO SCH ×2 (08:43→16:24)
[2022-10-30] MEDS: THERAHONEY GEL 1.5 OZ TUBE TP SCH (08:44)
[2022-10-30] MEDS: APIXABAN 5 MG TABLET PO SCH ×2 (08:46→16:25)
[2022-10-30] MEDS: IV NS 0.9% 1,000 ML IV PRN (10:02)
[2022-10-30] MEDS: CEFTRIAXONE 1 G in IV D5W 50 ML IV SCH (12:07)
[2022-10-30] MEDS: VANCOMYCIN 500 MG in IV D5W 100ml IV SCH (12:34)
[2022-10-30 16:00] VITALS: BP 106/40
--- NOTE | 2022-10-30 16:26 | NUR ---
BP 106/40, WILL HOLD BP MED.
--- NOTE | 2022-10-30 18:58 | NUR ---
RN CLOSING NOTE PATIENT RESTING IN BED, IN NO ACUTE DISTRESS OBSERVED. RESPIRATORY EVEN AND UNLABORED IN ROOM AIR, NO SOB OR DESATURATION NOTED. SKIN IS WARM TO TOUCH KEEP CLEAN/DRY. KEPT ELEVATED HOB FOR ENSURE AIRWAY/ASPIRATION PRECAUTION. BED ALARM IS ON AT ALL TIMES FOR SAFETY. CALL LIGHT WITHIN REACH, WILL ENDORSE DYNAMICS AX SOLUTION ARCHITECT.
--- NOTE | 2022-10-30 19:00 | NUR ---
RN OPENING NOTE RECEIVED PT AWAKE IN BED. PT IS A/OX1, NON VERBAL. PT IS IN RA TOLERATING WELL, BREATHING EVEN AND UNLABORED @ THIS TIME. PT IV PRESENT ON THE LEFT FOREARM #22G RUNNING NS @75MLS/HR, PATENT, INTACT AND FLUSHES WELL W/ NO S&SX OF INFILTRATION @ SITE NOTED. SAFETY MEASURES IN PLACE. BED IN LOWEST & LOCKED POSITION. SIDE RAILS X 4. BEDSIDE TABLE & CALL LIGHT IS EASY REACH. BED ALARM IS ON. WILL CONTINUE TO MONITOR PT ACCORDINGLY.
[2022-10-30 20:00] VITALS: BP 103/51
[2022-10-30] MEDS: LATANOPROST EYE DROP 0.005% 2.5 ML BOTTLE EACHEYE SCH (21:12)
[2022-10-30] MEDS: ATORVASTATIN 40 MG TABLET PO SCH (21:12)
[2022-10-31] MEDS: VANCOMYCIN 500 MG in IV D5W 100ml IV SCH (00:06)
[2022-10-31] MEDS: IV NS 0.9% 1,000 ML IV PRN ×2 (00:16→22:42)
[2022-10-31 06:20] LABS: CALCIUM, SERUM 8.7 mg/dL (8.5-10.1); CARBON DIOXIDE 24 mmol/L (21-32); CHLORIDE 110 mmol/L (98-107); CREATININE 0.4 mg/dL (0.6-1.3); GLUCOSE 90 mg/dL (74-106); SODIUM SERUM 142 mmol/L (136-145); UREA NITROGEN, BLOOD 35 mg/dL (7-18)
--- NOTE | 2022-10-31 06:38 | NUR ---
RN CLOSING NOTE PT AWAKE & RESTING COMFORTABLY IN BED. PT IS A/OX1, NON VERBAL BUT RESPONSIVE. PT IS IN RA W/ NO S&SX OF RESPIRATORY DISTRESS @ THIS TIME. PT IV PRESENT ON THE LEFT FOREARM #22G RUNNING NS @70MLS/HR, PATENT, INTACT AND FLUSHES WELL W/ NO S&SX OF INFILTRATION @ SITE NOTED. SAFETY MEASURES IN PLACE. BED IN LOWEST & LOCKED POSITION. SIDE RAILS UP X 4. BEDSIDE TABLE & CALL LIGHT IS EASY REACH. BED ALARM IS ON. WILL ENDORSE TO THE NEXT SHIFT FOR MARIMAR.
--- NOTE | 2022-10-31 07:25 | NUR ---
RN OPENING NOTE RECEIVED PT AWAKE IN BED. PT IS A/OX1, NON VERBAL. PT IS IN RA TOLERATING WELL, BREATHING EVEN AND UNLABORED, NO S/S OF DISTRESS NOTED. PATIENT HAS IV ON LFA #22G RUNNING NS AT 70MLS/HR, INFUSING WELL. SAFETY MEASURES IN PLACE. BED IN LOWEST & LOCKED POSITION. SIDE RAILS X 4. BEDSIDE TABLE & CALL LIGHT IS EASY REACH. BED ALARM IS ON. WILL CONTINUE TO MONITOR PATIENT ACCORDINGLY.
[2022-10-31 08:00] VITALS: BP 100/40
[2022-10-31] MEDS: LEVOTHYROXINE SODIUM 175 MCG TABLET PO SCH (08:10)
[2022-10-31] MEDS: LISINOPRIL (10MG) 10 MG TABLET PO SCH (09:00)
[2022-10-31 09:30] VITALS: BP 90/50
--- NOTE | 2022-10-31 09:38 | NUR ---
RN NOTE BP USING AUTOMATIC CUFF IS 100/40 WITH HR OF 77, MANUAL BP TAKEN 90/55, INFORMED DR NEAL. PATIENT HAS MEDICATIONS WHICH INCLUDES DIGOXIN, ISMN, LISINOPRIL AND METOPROLOL, MD ORDERED TO HOLD LISINOPRIL. WILL CONTINUE TO MONITOR PATIENT
[2022-10-31] MEDS: FERROUS SULFATE (325 MG) 325 MG/TAB TABLET PO SCH (09:40)
[2022-10-31] MEDS: PROSOURCE / PROSTAT (PYXIS) 30 ML UDC GT SCH ×3 (09:40→16:09)
[2022-10-31] MEDS: ASPIRIN 81 MG TAB.CHEW PO SCH (09:41)
[2022-10-31] MEDS: APIXABAN 5 MG TABLET PO SCH ×2 (09:42→16:10)
[2022-10-31] MEDS: ARGININE/GLUTAMINE/CALCIUM BMB 1 EACH POWD.PACK PO SCH ×2 (09:43→16:08)
[2022-10-31] MEDS: ENSURE ENLIVE 237 ML LIQUID (VANILLA) PO SCH ×3 (09:43→16:09)
[2022-10-31] MEDS: THERAHONEY GEL 1.5 OZ TUBE TP SCH (09:44)
[2022-10-31] MEDS: DIGOXIN 0.125 MG TABLET PO SCH (09:47)
[2022-10-31 10:50] VITALS: BP 100/66
--- NOTE | 2022-10-31 10:50 | NUR ---
RN NOTE MANUAL BP TAKEN 100/66.
[2022-10-31] MEDS: ISOSORBIDE MONONITRATE (30MG) 30 MG TAB.SR.24H PO SCH (10:51)
[2022-10-31] MEDS: METOPROLOL TARTRATE 25 MG TABLET PO SCH ×2 (10:51→16:10)
[2022-10-31] MEDS: MEROPENEM 500 MG in IV NS 0.9% 50 ML IV SCH ×2 (12:54→20:12)
[2022-10-31] MEDS ORDERED: Prosource GT (13:01)
[2022-10-31] MEDS ORDERED: COLL30OI TP (13:01)
[2022-10-31] MEDS ORDERED: ERTA1VIA4 IV (13:01)
[2022-10-31] MEDS ORDERED: LISI10TA29 PO (13:01)
[2022-10-31] MEDS ORDERED: DIGO125T PO (13:01)
[2022-10-31] MEDS ORDERED: NUTR1PAC14 PO (13:01)
[2022-10-31] MEDS ORDERED: ISOS30TA86 PO (13:01)
[2022-10-31] MEDS ORDERED: LEVO175T2 PO (13:01)
[2022-10-31] MEDS ORDERED: ASPI-1169 PO (13:01)
[2022-10-31 16:00] VITALS: BP 111/50
--- NOTE | 2022-10-31 18:27 | NUR ---
RN CLOSING NOTE PATIENT AWAKE IN BED. PATIENT IS A/OX1-2, NON VERBAL BUT MAKES USE OF HAND SIGNALS TO MAKE NEEDS KNOWN. PATIENT IS IN ROOM AIR, TOLERATING WELL, BREATHING EVEN AND UNLABORED, NO S/S OF DISTRESS NOTED. PATIENT HAS IV ON LFA #22G RUNNING NS AT 70ML/HR, INFUSING WELL. SAFETY MEASURES IN PLACE. BED IN LOWEST & LOCKED POSITION. SIDE RAILS X 4. BEDSIDE TABLE & CALL LIGHT IS EASY REACH. BED ALARM IS ON. WILL ENDORSE TO THREAD WEAVER NURSE
--- NOTE | 2022-10-31 19:30 | NUR ---
MS RN OPENING NOTE RECEIVED PATIENT IN BED, WITH HOB ELEVATED, AWAKE, ALERT AND ORIENTED X1. AFEBRILE AND NOT IN ANY FORM OF ACUTE DISTRESS. BREATHING EVEN AND NON LABORED. WITH IV ACCESS ON LFA 22G RUNNING WITH NS AT 70ML/HR. SAFETY MEASURES IN PLACE. KEPT BED IN LOCKED AND IN LOW POSITION. SIDE RAILS UP X2. CALL LIGHT WITHIN EASY REACH.
[2022-10-31 20:00] VITALS: BP_SYST 109; BP_DIAS 46; BP_DIAS 50
[2022-10-31] MEDS: LATANOPROST EYE DROP 0.005% 2.5 ML BOTTLE EACHEYE SCH (21:19)
[2022-10-31] MEDS: ATORVASTATIN 40 MG TABLET PO SCH (21:19)
[2022-11-01] MEDS: MEROPENEM 500 MG in IV NS 0.9% 50 ML IV SCH (04:04)
--- NOTE | 2022-11-01 06:30 | NUR ---
MS RN CLOSING NOTE PATIENT IN BED, WITH HOB ELEVATED, SLEEPING INTERMITTENTLY. AFEBRILE AND NOT IN ANY FORM OF ACUTE DISTRESS. BREATHING EVEN AND NON LABORED. WITH IV ACCESS ON LFA 22G RUNNING WITH NS AT 70ML/HR. MEDICATED ORDERED. CONTINUOUS ON IV ATB, MONITORED FOR ANY ADVERSE REACTION. SAFETY MEASURES IN PLACE. KEPT BED IN LOCKED AND IN LOW POSITION. SIDE RAILS UP X2. CALL LIGHT WITHIN EASY REACH. ALL NURSING NEEDS ATTENDED. ENDORSED TO INCOMING SHIFT FOR CONTINUITY OF CARE.
--- NOTE | 2022-11-01 06:30 | NUR ---
TAX INTERN CLOSING NOTE PATIENT IN BED, WITH HOB ELEVATED, ASLEEP BUT EASY TO AROUSE AND RESPONSIVE. ABLE TO MAKE NEEDS KNOWN. AFEBRILE AND NOT IN ANY FORM OF ACUTE DISTRESS. ON O2 INHALATION VIA NASAL CANNULA AT 2LPM. NO C/O PAIN OR DISCOMFORT THROUGHOUT THE SHIFT. ON TELE MONITORING WITH CURRENT READING OF V PACING 81. WITH IV ACCESS ON LFA 18-SL. MONITORED FOR ANY S/SX. OF HYPO/HYPERGLYCEMIA. MEDICATED ORDERED. SAFETY MEASURES IN PLACE. KEPT BED IN LOCKED AND IN LOW POSITION. SIDE RAILS UP X2. ADVISED YO USE THE CALL LIGHT WHEN IN NEED OF ASSISTANCE. ALL NURSING NEEDS ATTENDED. ENDORSED TO INCOMING SHIFT FOR CONTINUITY OF CARE. Addendum: 11/01/22 at 0644 by GRETEL BRUNER RN WRONG ENTRY
[2022-11-01 07:17] LABS: CALCIUM, SERUM 8.8 mg/dL (8.5-10.1); CARBON DIOXIDE 21 mmol/L (21-32); CHLORIDE 109 mmol/L (98-107); CREATININE 0.4 mg/dL (0.6-1.3); GLUCOSE 104 mg/dL (74-106); POTASSIUM 4.1 mmol/L (3.5-5.1); SODIUM SERUM 140 mmol/L (136-145); UREA NITROGEN, BLOOD 29 mg/dL (7-18)
--- NOTE | 2022-11-01 07:45 | NUR ---
MS RN NOTES: RECEIVED PATIENT IN BED, ASLEEP, EASILY ROUSED, WITH HOB ELEVATED. A/OX1, RESPONDS TO NAME. ON RA WITH NO S/S OF SOB, NO PAIN NOTED VIA FLACC. IV ACCESS ON LFA 22G RUNNING WITH NS AT 70ML/HR. SAFETY MEASURES IN PLACE. KEPT BED IN LOCKED AND IN LOW POSITION. SIDE RAILS UP X2. CALL LIGHT WITHIN EASY REACH, WILL CONT WITH PLAN OF CARE DURING SHIFT.
[2022-11-01 08:00] VITALS: BP 137/66
[2022-11-01 08:53] LABS: BASOPHILS # (AUTO) 0.1 K/uL (0.0-0.2); BASOPHILS % (AUTO) 1.1 % (0.0-2.0); EOSINOPHILS % (AUTO) 2.2 % (0.0-6.0); HEMATOCRIT 29 % (39-51); HEMOGLOBIN 9.2 g/dL (13.5-17.5); LYMPHOCYTES # (AUTO) 0.6 K/uL (0.8-4.8); LYMPHOCYTES % (AUTO) 10.6 % (20.0-44.0); MEAN CORPUSCULAR HGB CONC 32 g/dl (31.0-36.0); MEAN CORPUSCULAR VOLUME 82 fL (80-96); NEUTROPHILS % (AUTO) 69.1 % (43.0-81.0); PLATELET COUNT (AUTO) 258 K/uL (150-450); RED BLOOD CELL COUNT(AUTO) 3.53 MIL/uL (4.5-6.0); WHITE BLOOD COUNT (AUTO) 5.8 K/uL (4.3-11.0)
[2022-11-01] MEDS: FERROUS SULFATE (325 MG) 325 MG/TAB TABLET PO SCH (08:55)
[2022-11-01] MEDS: ASPIRIN 81 MG TAB.CHEW PO SCH (08:55)
[2022-11-01] MEDS: ISOSORBIDE MONONITRATE (30MG) 30 MG TAB.SR.24H PO SCH (08:56)
[2022-11-01] MEDS: DIGOXIN 0.125 MG TABLET PO SCH (08:57)
[2022-11-01] MEDS: ARGININE/GLUTAMINE/CALCIUM BMB 1 EACH POWD.PACK PO SCH (08:59)
[2022-11-01] MEDS: LEVOTHYROXINE SODIUM 175 MCG TABLET PO SCH (08:59)
[2022-11-01 09:00] VITALS: BP 102/46
[2022-11-01] MEDS: LISINOPRIL (10MG) 10 MG TABLET PO SCH (09:00)
[2022-11-01] MEDS: METOPROLOL TARTRATE 25 MG TABLET PO SCH (09:00)
[2022-11-01] MEDS: PROSOURCE / PROSTAT (PYXIS) 30 ML UDC GT SCH (09:00)
[2022-11-01] MEDS: APIXABAN 5 MG TABLET PO SCH (09:01)
[2022-11-01] MEDS: ENSURE ENLIVE 237 ML LIQUID (VANILLA) PO SCH (09:02)
[2022-11-01] MEDS: THERAHONEY GEL 1.5 OZ TUBE TP SCH (09:04)
--- NOTE | 2022-11-01 10:05 | NUR ---
DC NOTES: PT STABLE FOR DC, REPORT GIVEN BY PHONE TO DARIANA, RN, [facility]. VITALS WNL, AFEBRILE, STABLE ON RA. BELONGINGS, DC INSTRUCTIONS AND MED RECORDS VERIFIED AND SIGNED BY 2 RNS. ID BAND REMOVED, IV ACCESS @ L FA#[address] FOR CONTINUES IV ABX X14 DAYS. KEPT PT CLEAN AND DRY. PT LEFT UNIT VIA GURNEY, TRANSPORTATION IS [facility],
[2022-11-01 12:07] LABS: BASOPHILS % (MANUAL) 0 % (0.0-2.0); EOSINOPHILS % (MANUAL) 2 % (0-4); LYMPHOCYTES % (MANUAL) 12 % (16-48); MONOCYTES % (MANUAL) 15 % (0-11.0); NEUTROPHILS % (MANUAL) 71 (42-76)
== END 2022-11-01 09:45 | DRG 264 ==
LOC: ER 10:33 → TELE 14:57 → MED 10-29 21:59
PROVIDERS: ADMIT Nurse Practitioner Acute Care; ATTEND Nurse Practitioner Acute Care
PROC: 0JB70ZZ Excision of Back Subcutaneous Tissue and Fascia, Open Approach (ICD-10-PCS; principal; 2022-10-28)
DX: I48.19 Other persistent atrial fibrillation (principal); I21.A1 Myocardial infarction type 2; G93.41 Metabolic encephalopathy; L89.153 Pressure ulcer of sacral region, stage 3; E44.0 Moderate protein-calorie malnutrition; I50.32 Chronic diastolic (congestive) heart failure; N39.0 Urinary tract infection, site not specified; Z16.12 Extended spectrum beta lactamase (ESBL) resistance; I11.0 Hypertensive heart disease with heart failure; Z66 Do not resuscitate; F03.90 Unspecified dementia, unspecified severity, without behavioral disturbance, psychotic disturbance, mood disturbance, and anxiety; Z87.09 Personal history of other diseases of the respiratory system; Z96.641 Presence of right artificial hip joint; Z86.16 Personal history of COVID-19; I35.1 Nonrheumatic aortic (valve) insufficiency; Z91.041 Radiographic dye allergy status; Z79.899 Other long term (current) drug therapy; Z79.01 Long term (current) use of anticoagulants; E03.9 Hypothyroidism, unspecified; E78.5 Hyperlipidemia, unspecified; E86.1 Hypovolemia; D64.9 Anemia, unspecified; E88.09 Other disorders of plasma-protein metabolism, not elsewhere classified; I42.9 Cardiomyopathy, unspecified; I71.21 Aneurysm of the ascending aorta, without rupture; Z51.5 Encounter for palliative care; Z79.82 Long term (current) use of aspirin; R79.89 Other specified abnormal findings of blood chemistry; B96.89 Other specified bacterial agents as the cause of diseases classified elsewhere
CPT/HCPCS: 36415; 71045-TC; 80048-TC; 80061-TC; 80076-TC; 80202-TC; 81001; 83605-TC; 83735-TC; 84100-TC; 84439-TC; 84443-TC; 84484-TC; 85025-TC; 85730-TC; 87040-TC; 87081-TC; 87086-TC; 92526; 92611-TC; 93307-TC; A4223; A4349; C9803; G0378; J0696; J1160; J1650; J2185; J3370; J7030; J7040; J7060